=== PATIENT | male | born 1955 | race African-American/Black ===

== ENCOUNTER 2018-11-10 15:11 | Emergency (ER) | payer MEDICARE, OTHER ==
[~2018-11-10] VITALS: Ht 172.7 cm; Wt 73.0 kg
[~2018-11-10 15:11] MED LIST: ASACOL400 MG PO; DIFLUCAN200 MG PO; LISINOPRIL10 MG PO; METRONIDAZOLE500 MG PO; NORCO 10-325 T1 EACH PO; NORCO 10MG-325MG1 EA PO; PANTOPRAZOLE SO40 MG PO; PENTASA500 MG PO; PREDNISONE10 MG PO; PREDNISONE20 MG PO; TYLENOL WITH C1 EACH PO; ULTRAM 50MG50 MG PO
--- OUTSIDE RECORDS SUMMARY | 2018-11-10 15:14 | XMS REPORT | Continuity of Care Document ---
Author Author [facility] Address Unknown Phone Unavailable Problems Problem Status Onset Date Classification Date Reported Comments Source ABDOMINAL PAIN, LEFT LOWER QUADRANT Active 06/24/2014 Condition 06/24/2014 [facility] ABNORMAL STOOL CONTENTS Active 06/24/2014 Condition 06/24/2014 [facility] ABNORMAL WEIGHT LOSS Active 06/24/2014 Condition 06/24/2014 [facility] ABSCESS PERIRECTAL/PERIANAL Active 06/24/2014 Condition 06/24/2014 [facility] CHANGE IN BOWEL HABITS Active 06/24/2014 Condition 06/24/2014 [facility] CROHN'S DISEASE, LARGE INTESTINE Active 06/24/2014 Condition 06/24/2014 [facility] ANAL FISTULA Active 06/24/2014 Condition 06/24/2014 [facility] RECTAL PAIN Active 06/24/2014 Condition 06/24/2014 [facility] Medications Medication Details Route Status Patient Instructions Ordering Provider Order Date Source PREDNISONE 10 MG TABS Active 06/24/2014 [facility] PENTASA 500 MG CR-CAPS Active 06/24/2014 [facility] DIFLUCAN 200 MG TABS Active 06/24/2014 [facility] PROTONIX 40 MG TBEC Active 06/24/2014 [facility] LISINOPRIL 20 MG TABS Active 06/24/2014 [facility] TYLENOL WITH CODEINE #3 300-30 MG TABS 1-2 tablets every 6 hours as needed for pain Active 06/24/2014 [facility] Allergies, Adverse Reactions, Alerts Substance Category Reaction Severity Reaction type Status Date Reported Comments Source TYLENOL Drug allergy TYLENOL 06/24/2014 [facility] IBUPROFEN Drug allergy IBUPROFEN 06/24/2014 [facility] Immunizations Immunization Date Given Site Status Last Updated Comments Source Results Order Name Results Value Reference Range Date Interpretation Comments Source Chemistry SODIUM 138 MEQ/L mmol/L 135 - 145 06/24/2014 [facility] Chemistry POTASSIUM 4.5 MEQ/L mmol/L 3.5 - 5.1 06/24/2014 [facility] Chemistry CREATININE 1.1 mg/dL 0.5 - 1.4 06/24/2014 [facility] Chemistry BUN 12 mg/dL 7 - 22 06/24/2014 [facility] Chemistry BUN/CREAT 11 6 - 25 06/24/2014 [facility] Chemistry ALBUMIN 2.6 g/dL 3.5 - 5.0 06/24/2014 [facility] Chemistry CALCIUM 9.5 mg/dL 8.5 - 10.5 06/24/2014 [facility] Chemistry SGPT (ALT) 27 U/L 0 - 65 06/24/2014 [facility] Chemistry SGOT (AST) 11 U/L 0 - 37 06/24/2014 [facility] Chemistry ALK PHOS 108 U/L 39 - 136 06/24/2014 [facility] Coagulation PT PATIENT 12.3 s 12.0 - 14.7 06/24/2014 [facility] Coagulation INR 0.92 0.85 - 1.17 06/24/2014 [facility] Coagulation PTT PATIENT 23.0 s 22.9 - 35.8 06/24/2014 [facility] Hematology HGB 10.6 g/dL 14.0 - 18.0 06/24/2014 [facility] Hematology HCT 33.9 % 42.0 - 54.0 06/24/2014 [facility] Hematology PLATELETS 556 K/CMM /mm3 133 - 450 06/24/2014 [facility] Serology CEA 1.3 ng/mL 0.0 - 3.0 06/24/2014 [facility] Urinalysis UA COLOR Ltyellow 06/24/2014 [facility] Vital Signs Vital Sign Value Date Comments Source Weight 174 06/24/2014 [facility] Temperature Oral (F) 98.7 F 06/24/2014 [facility] Heart Rate 116 06/24/2014 [facility] Systolic (mm Hg) 142 06/24/2014 [facility] Diastolic (mm Hg) 88 06/24/2014 [facility] Encounters Location Location Details Encounter Type Encounter Number Reason For Visit Attending Provider ADM Date DC Date Status Source [facility] Colorectal Surgery Lab Report [id number] Michael Ness MD 06/24/2014 06/24/2014 [facility] Procedures Procedure Code Date Perfomer Comments Source
--- OUTSIDE RECORDS SUMMARY | 2018-11-10 15:15 | XMS REPORT | Continuity of Care Document ---
Author Author [facility] Organization [facility] Address Unknown Phone Unavailable Care Team Providers Care Fence Post Cutter Name Role Phone MD Thi, Michael Unavailable Insurance Providers Payer name Policy type / Coverage type Policy ID Covered democrat ID Policy [place] - TM[place] - TRADITIONAL Encounters Encounter Performer Location Date Lab Report Michael Ness MD [facility] Colorectal Surgery Jun 24, 2014 Allergies, Adverse Reactions, Alerts Type Substance Reaction Status Drug allergy TYLENOL Stomach cramps Active Drug allergy IBUPROFEN Stomach cramps Active Problems Problem Effective Dates Problem Status ABDOMINAL PAIN, LEFT LOWER QUADRANT Jun 24, 2014 Active ABNORMAL STOOL CONTENTS Jun 24, 2014 Active ABNORMAL WEIGHT LOSS Jun 24, 2014 Active ABSCESS PERIRECTAL/PERIANAL Jun 24, 2014 Active CHANGE IN BOWEL HABITS Jun 24, 2014 Active CROHN'S DISEASE, LARGE INTESTINE Jun 24, 2014 Active ANAL FISTULA Jun 24, 2014 Active RECTAL PAIN Jun 24, 2014 Active Procedures Date Description Comments Jun 24, 2014 smoking status Never smoker Medications Medication Instructions Start Date Status PREDNISONE 10 MG TABS Jun 24, 2014 Active PENTASA 500 MG CR-CAPS Jun 24, 2014 Active DIFLUCAN 200 MG TABS Jun 24, 2014 Active PROTONIX 40 MG TBEC Jun 24, 2014 Active LISINOPRIL 20 MG TABS Jun 24, 2014 Active TYLENOL WITH CODEINE #3 300-30 MG TABS 1-2 tablets every 6 hours as needed for pain Jun 24, 2014 Active Vital Signs Date Description Test Result Jun 24, 2014 weight E&M - 3141-9 WEIGHT 174 lb Jun 24, 2014 temperature E&M TEMPERATURE 98.7 deg f Jun 24, 2014 pulse rate E&M - 8867-4 PULSE RATE 116 /min Jun 24, 2014 blood pressure, systolic - 8480-6 BP SYSTOLIC 142 mm Hg Jun 24, 2014 blood pressure, diastolic - 8462-4 BP DIASTOLIC 88 mm Hg Results Date Description Test Name Value Reference Interpretation Status Jun 24, 2014 hemoglobin, blood HGB 10.6 g/dL 14.0-18.0 Low Jun 24, 2014 hematocrit, blood HCT 33.9 % 42.0-54.0 Low Jun 24, 2014 platelet count PLATELETS 556 K/CMM /mm3 133-450 High Jun 24, 2014 urine color UA COLOR Ltyellow null Jun 24, 2014 sodium, serum SODIUM 138 MEQ/L mmol/L 135-145 Jun 24, 2014 potassium, serum POTASSIUM 4.5 MEQ/L mmol/L 3.5-5.1 Jun 24, 2014 creatinine, serum CREATININE 1.1 mg/dL 0.5-1.4 Jun 24, 2014 urea nitrogen, blood BUN 12 mg/dL 7-22 Jun 24, 2014 urea nitrogen/creatinine ratio, serum BUN/CREAT 11 null 6-25 Jun 24, 2014 albumin, serum ALBUMIN 2.6 g/dL 3.5-5.0 Low Jun 24, 2014 calcium, serum CALCIUM 9.5 mg/dL 8.5-10.5 Jun 24, 2014 alanine aminotransferase (SGPT), serum SGPT (ALT) 27 U/L 0-65 Jun 24, 2014 aspartate aminotransferase (SGOT), serum SGOT (AST) 11 U/L 0-37 Jun 24, 2014 alkaline phosphatase, serum ALK PHOS 108 U/L 39-136 Jun 24, 2014 prothrombin time (patient) PT PATIENT 12.3 s 12.0-14.7 Jun 24, 2014 international normalized ratio (INR) INR 0.92 null 0.85-1.17 Jun 24, 2014 PTT patient PTT PATIENT 23.0 s 22.9-35.8 Jun 24, 2014 carcinoembryonic antigen CEA 1.3 ng/mL 0.0-3.0
[2018-11-10 17:03] LABS: BASOPHILS % 0.3 % (0.0-1.0); EOSINOPHILS % 0.1 % (0.0-6.0); HEMATOCRIT 37.3 % (38.2-49.6); HEMOGLOBIN 12.1 g/dL (14.0-18.0); LYMPHOCYTES # (AUTO) 1.9 (1.0-3.2); LYMPHOCYTES % 20.5 % (18.0-39.1); MEAN CORPUSCULAR HEMOGLOBIN 28.5 pg (28-32); MEAN CORPUSCULAR HGB CONC 32.4 g/dL (31-35); MEAN CORPUSCULAR VOLUME 87.8 fL (81-99); MONOCYTES # (AUTO) 0.5 (0.2-0.8); MONOCYTES % 5.9 % (4.4-11.3); NEUTROPHILS # (AUTO) 6.7 (2.1-6.9); NEUTROPHILS % 72.9 % (38.7-80.0); PLATELET COUNT 226 x10e3/uL (140-360); RED BLOOD COUNT 4.25 x10e6/uL (4.3-5.7)
[2018-11-10 17:20] LABS: ALANINE AMINOTRANSFERASE 17 IU/L (0-55); ALBUMIN 3.4 g/dL (3.5-5.0); ALBUMIN/GLOBULIN RATIO 0.7 (0.8-2.0); ALKALINE PHOSPHATASE 80 IU/L (40-150); ANION GAP 12.5 mmol/L (8-16); BLOOD UREA NITROGEN 16 mg/dL (7-26); BUN/CREATININE RATIO 11 (6-25); CALCIUM 9.1 mg/dL (8.4-10.2); CARBON DIOXIDE 23 mmol/L (22-29); CHLORIDE 109 mmol/L (98-107); CREATININE, SERUM 1.43 mg/dL (0.72-1.25); EST GLOMERULAR FILTRATION RATE > 60 ML/MIN (60-); GLUCOSE 112 mg/dL (74-118); POTASSIUM 4.5 mmol/L (3.5-5.1); SODIUM 140 mmol/L (136-145)
[2018-11-10] MEDS ORDERED: SODIUM CHLORIDE 0.9% 1000ML 1,000 ML IV SCH (17:30)
[2018-11-10 18:43] VITALS: BP 123/75
== END 2018-11-10 18:55 | disposition home or self-care (01) ==
LOC: ER 15:11
DX: R94.4 Abnormal results of kidney function studies (principal); R19.7 Diarrhea, unspecified; Z87.19 Personal history of other diseases of the digestive system
CPT/HCPCS: 36415; 80053; 85025; 99283; J7030

== ENCOUNTER 2018-12-26 20:40 | Inpatient (IN) | payer OTHER ==
[~2018-12-26] VITALS: Ht 167.6 cm; Wt 113.5 kg
--- OUTSIDE RECORDS SUMMARY | 2018-12-26 20:45 | XMS REPORT | Continuity of Care Document ---
Author Author [employer] [facility] [employer] [facility] Address Unknown Phone Unavailable Care Team Providers Care Order Department Supervisor Name Role Phone [employer] [facility] Unavailable Unavailable Problems Problem Status Onset Date Classification Date Reported Comments Source ABDOMINAL PAIN, LEFT LOWER QUADRANT Active 06/24/2014 Condition 06/24/2014 [facility] ABNORMAL STOOL CONTENTS Active 06/24/2014 Condition 06/24/2014 [facility] ABNORMAL WEIGHT LOSS Active 06/24/2014 Condition 06/24/2014 [facility] ABSCESS PERIRECTAL/PERIANAL Active 06/24/2014 Condition 06/24/2014 [facility] CHANGE IN BOWEL HABITS Active 06/24/2014 Condition 06/24/2014 [facility] CROHN'S DISEASE, LARGE INTESTINE Active 06/24/2014 Condition 06/24/2014 [facility] ANAL FISTULA Active 06/24/2014 Condition 06/24/2014 [facility] RECTAL PAIN Active 06/24/2014 Condition 06/24/2014 [facility] Medications Medication Details Route Status Patient Instructions Ordering Provider Order Date Source PREDNISONE 10 MG TABS Active 06/24/2014 [facility] PENTASA 500 MG CR-CAPS Active 06/24/2014 [facility] DIFLUCAN 200 MG TABS Active 06/24/2014 [facility] PROTONIX 40 MG TBEC Active 06/24/2014 [facility] LISINOPRIL 20 MG TABS Active 06/24/2014 [facility] TYLENOL WITH CODEINE #3 300-30 MG TABS 1-2 tablets every 6 hours as needed for pain Active 06/24/2014 [facility] Allergies, Adverse Reactions, Alerts Substance Category Reaction Severity Reaction type Status Date Reported Comments Source TYLENOL Drug allergy TYLENOL 06/24/2014 [facility] IBUPROFEN Drug allergy IBUPROFEN 06/24/2014 [facility] Immunizations No Data Provided for This Section Results Order Name Results Value Reference Range Date Interpretation Comments Source Chemistry SODIUM 138 MEQ/L 135 - 145 06/24/2014 [facility] Chemistry POTASSIUM 4.5 MEQ/L 3.5 - 5.1 06/24/2014 [facility] Chemistry CREATININE 1.1 0.5 - 1.4 06/24/2014 [facility] Chemistry BUN 12 7 - 22 06/24/2014 [facility] Chemistry BUN/CREAT 11 6 - 25 06/24/2014 [facility] Chemistry ALBUMIN 2.6 3.5 - 5.0 06/24/2014 [facility] Chemistry CALCIUM 9.5 8.5 - 10.5 06/24/2014 [facility] Chemistry SGPT (ALT) 27 0 - 65 06/24/2014 [facility] Chemistry SGOT (AST) 11 0 - 37 06/24/2014 [facility] Chemistry ALK PHOS 108 39 - 136 06/24/2014 [facility] Coagulation PT PATIENT 12.3 12.0 - 14.7 06/24/2014 [facility] Coagulation INR 0.92 0.85 - 1.17 06/24/2014 [facility] Coagulation PTT PATIENT 23.0 22.9 - 35.8 06/24/2014 [facility] Hematology HGB 10.6 14.0 - 18.0 06/24/2014 [facility] Hematology HCT 33.9 42.0 - 54.0 06/24/2014 [facility] Hematology PLATELETS 556 K/CMM 133 - 450 06/24/2014 [facility] Serology CEA 1.3 0.0 - 3.0 06/24/2014 [facility] Urinalysis UA COLOR Ltyellow 06/24/2014 [facility] Pathology Reports No Data Provided for This Section Diagnostic Reports No Data Provided for This Section Consultation Notes No Data Provided for This Section Discharge Summaries No Data Provided for This Section History and Physicals No Data Provided for This Section Vital Signs Vital Sign Value Date Comments Source Weight 174 06/24/2014 [facility] Temperature Oral (F) 98.7 F 06/24/2014 [facility] Heart Rate 116 06/24/2014 [facility] Systolic (mm Hg) 142 06/24/2014 [facility] Diastolic (mm Hg) 88 06/24/2014 [facility] Encounters Location Location Details Encounter Type Encounter Number Reason For Visit Attending Provider ADM Date DC Date Status Source [facility] Colorectal Surgery Lab Report [id number] Michael Ness MD 06/24/2014 06/24/2014 [facility] Procedures No Data Provided for This Section Assessment and Plan No Data Provided for This Section Plan of Care No Data Provided for This Section Social History No Data Provided for This Section Family History No Data Provided for This Section Advance Directives No Data Provided for This Section Functional Status No Data Provided for This Section
[2018-12-26 22:26] LABS: BASOPHILS % 0.2 % (0.0-1.0); EOSINOPHILS # (AUTO) 0.1 (0.0-0.4); EOSINOPHILS % 0.5 % (0.0-6.0); HEMATOCRIT 35.9 % (38.2-49.6); HEMOGLOBIN 11.1 g/dL (14.0-18.0); LYMPHOCYTES # (AUTO) 1.9 (1.0-3.2); LYMPHOCYTES % 16.6 % (18.0-39.1); MEAN CORPUSCULAR HEMOGLOBIN 27.7 pg (28-32); MEAN CORPUSCULAR HGB CONC 30.9 g/dL (31-35); MEAN CORPUSCULAR VOLUME 89.5 fL (81-99); MONOCYTES # (AUTO) 1.3 (0.2-0.8); MONOCYTES % 10.9 % (4.4-11.3); NEUTROPHILS # (AUTO) 8.3 (2.1-6.9); NEUTROPHILS % 71.5 % (38.7-80.0); PLATELET COUNT 230 x10e3/uL (140-360); RED BLOOD COUNT 4.01 x10e6/uL (4.3-5.7); RED CELL DISTRIBUTION WIDTH 14.6 % (11.7-14.4)
[2018-12-26 22:45] LABS: ALBUMIN 3.7 g/dL (3.5-5.0); ALBUMIN/GLOBULIN RATIO 0.8 (0.8-2.0); ANION GAP 27.4 mmol/L (8-16); CALCIUM 9.2 mg/dL (8.4-10.2); CREATININE, SERUM 13.69 mg/dL (0.72-1.25); POTASSIUM 5.4 mmol/L (3.5-5.1)
[2018-12-26] MEDS ORDERED: SODIUM CHLORIDE 0.9% 1000ML 1,000 ML ONE (22:47)
--- NOTE | 2018-12-26 22:47 | Diagnostic Imaging Report ---
EXAMINATION: Head CT without contrast. HISTORY:Syncope. COMPARISON:None. TECHNIQUE: Multidetector axial images were obtained from the foramen magnum to the vertex without contrast. The images were reconstructed using brain and bone algorithms. Thin section brain images were reformatted into coronal and sagittal planes. Dose modulation, iterative reconstruction, and/or weight based adjustment of the mA/kV was utilized to reduce the radiation dose to as low as reasonably achievable. Intravenous contrast: None IMAGE QUALITY: Acceptable. FINDINGS: Skull/scalp: No lytic or blastic. lesions. No surgical changes. Parenchyma: No abnormal density. No acute hemorrhage, mass or acute major vascular territorial infarct. Arteries: No density suggestive of thrombosis. Dural sinuses: No abnormal density suggestive of thrombosis. Ventricles: No hydrocephalus or displacement. Extra-axial spaces: No abnormal density. Brain volume: Normal for age. Craniocervical junction: No mass, Chiari malformation, or basilar invagination. Sella: No mass. Paranasal/mastoid sinuses: Imaged portions unremarkable. IMPRESSION: No intracranial abnormality. Signed by: Dr. Paz Eastman M.D. on 12/26/2018 10:44 PM
[2018-12-26 23:23] LABS: AMPHETAMINES SCREEN,URINE NEGATIVE (NEGATIVE); BENZODIAZEPINES SCREEN,URINE NEGATIVE (NEGATIVE); PHENCYCLIDINE SCREEN,URINE NEGATIVE (NEGATIVE)
[2018-12-26] MEDS ORDERED: SODIUM CHLORIDE 0.9% 1000ML 1,000 ML IV ONE (23:30)
[2018-12-26] MEDS ORDERED: DEXTROSE 50% SYRINGE 50 ML IV STA (23:42)
[2018-12-26] MEDS ORDERED: CALCIUM CHLORIDE 10% 1.36 MEQ/ML 10ML SYR IV STA (23:42)
[2018-12-26] MEDS ORDERED: SODIUM BICARBONATE 8.4% INJ 50 ML SYR IV STA (23:42)
[2018-12-26] MEDS ORDERED: INSULIN REGULAR, HUMAN 100 UNIT/1 ML 3ML VIAL IV ONE (23:45)
[2018-12-26] MEDS ORDERED: SODIUM CHLORIDE 0.9% 1000ML 1,000 ML IV SCH (23:50)
[2018-12-26 23:52] LABS: CREATINE KINASE MB 5.8 ng/mL (0-5.0)
[2018-12-27] VITALS (7 sets, daily range): BP systolic 93–130; BP diastolic 57–88
--- NOTE | 2018-12-27 | NUR ---
PT PLACED IN HOSPITAL BED FOR COMFORT - PT IN NAD, RESP EVEN AND NONLAB; WILL CONTINUE TO MONITOR
--- OUTSIDE RECORDS SUMMARY | 2018-12-27 | XMS REPORT | Continuity of Care Document ---
Author Author [facility] [employer] Address Unknown Phone Unavailable Care Team Providers Care Button Breaker Operator Name Role Phone [employer] Unavailable Unavailable Problems Problem Status Onset Date [...] DISEASE, LARGE INTESTINE Active 06/24/2014 Condition 06/24/2014 [facility] ANAL FISTULA Active 06/24/2014 Condition 06/24/2014 [facility] RECTAL PAIN Active 06/24/2014 Condition 06/24/2014 [facility] Medications Medication Details Route Status Patient Instructions Ordering Provider Order Date Source PREDNISONE 10 MG TABS Active 06/24/2014 [facility] PENTASA 500 MG CR-CAPS Active 06/24/2014 [facility] DIFLUCAN 200 MG TABS Active 06/24/2014 [facility] PROTONIX 40 MG TBEC Active 06/24/2014 [facility] LISINOPRIL 20 MG TABS Active 06/24/2014 [facility] TYLENOL WITH CODEINE #3 300-30 MG TABS 1-2 tablets every 6 hours as needed for pain Active 06/24/2014 [facility] Allergies, Adverse Reactions, Alerts Substance Category Reaction Severity Reaction type Status Date Reported Comments Source TYLENOL Drug allergy TYLENOL 06/24/2014 [facility] IBUPROFEN Drug allergy IBUPROFEN 06/24/2014 [facility] Immunizations No Data Provided for This Section Results Order Name Results Value Reference Range Date Interpretation Comments Source Chemistry SODIUM 138 MEQ/L 135 - 145 06/24/2014 [facility] Chemistry POTASSIUM 4.5 MEQ/L 3.5 - 5.1 06/24/2014 [facility] Chemistry CREATININE 1.1 0.5 - 1.4 06/24/2014 [facility] Chemistry BUN 12 7 - 22 06/24/2014 [facility] Chemistry BUN/CREAT 11 6 - 25 06/24/2014 [facility] Chemistry ALBUMIN 2.6 3.5 - 5.0 06/24/2014 [facility] Chemistry CALCIUM 9.5 8.5 - 10.5 06/24/2014 [facility] Chemistry SGPT (ALT) 27 0 - 65 06/24/2014 [facility] Chemistry SGOT (AST) 11 0 - 37 06/24/2014 [facility] Chemistry ALK PHOS 108 39 - 136 06/24/2014 [facility] Coagulation PT PATIENT 12.3 12.0 - 14.7 06/24/2014 [facility] Coagulation INR 0.92 0.85 - 1.17 06/24/2014 [facility] Coagulation PTT PATIENT 23.0 22.9 - 35.8 06/24/2014 [facility] Hematology HGB 10.6 14.0 - 18.0 06/24/2014 [facility] Hematology HCT 33.9 42.0 - 54.0 06/24/2014 [facility] Hematology PLATELETS 556 K/CMM 133 - 450 06/24/2014 [facility] Serology CEA 1.3 0.0 - 3.0 06/24/2014 [facility] Urinalysis UA COLOR Ltyellow 06/24/2014 [facility] Pathology Reports No Data Provided for This Section Diagnostic Reports No Data Provided for This Section Consultation Notes No Data Provided for This Section Discharge Summaries No Data Provided for This Section History and Physicals No Data Provided for This Section Vital Signs Vital Sign Value Date Comments Source Weight 174 06/24/2014 [facility] Temperature Oral (F) 98.7 F 06/24/2014 [facility] Heart Rate 116 06/24/2014 [facility] Systolic (mm Hg) 142 06/24/2014 [facility] Diastolic (mm Hg) 88 06/24/2014 [facility] Encounters Location Location Details Encounter Type Encounter Number Reason For Visit Attending Provider ADM Date DC Date Status Source [facility] Colorectal Surgery Lab Report [id number] Michael Ness MD 06/24/2014 06/24/2014 [facility] Procedures No Data Provided for This [...]
--- OUTSIDE RECORDS SUMMARY | 2018-12-27 | XMS REPORT ---
Author Author [facility] Address Unknown Phone Unavailable Care Team Providers Care Coffee Break Attendant Name Role Phone Lauren LEON Unavailable Unavailable Problems This patient has no known problems. Allergies, Adverse Reactions, Alerts This patient has no known allergies or adverse reactions. Medications This patient has no known medications. Results Test Description Test Time Test Comments Text Results Atomic Results Result Comments CT BRAIN WO 2018-12-26 22:40:00 [facility] [address] [place] [id number] Patient Name: DEA RICE MR #: [id number] : 1955 Age/Sex: 63/M Req #: [id number] Adm Physician: Ordered by: ALMAS LEON MD Report #: [id number] Location: ER Room/Bed: Procedure: [id number] CT/CT BRAIN WO Exam Date: 12/26/18 Exam Time: 2216 REPORT STATUS: Signed EXAMINATION: Head CT without contrast. HISTORY:Syn cope. COMPARISON:None. TECHNIQUE: Multidetector axial images were obtained from the foramen magnum to the vertex without contrast. The images were reconstructed using brain and bone algorithms. Thin section brain images were reformatted into coronal and sagittal planes. Dose modulation, iterative reconstruction, and/or weight based adjustment of the mA/kV was utilized to reduce the radiation dose to as low as reasonably achievable. Intravenous contrast: None IMAGE QUALITY: Acceptable. FINDINGS: Skull/scalp: No lytic or blastic. lesions. No surgical changes. Parenchyma: No abnormal density. No acute hemorrhage, mass or acute major vascular territorial infarct. Arteries: No density suggestive of thrombosis. Dural sinuses: No abnormal density suggestive of thrombosis. Ventricles: No hydrocephalus or displacement. Extra- axial spaces: No abnormal density. Brain volume: Normal for age. Craniocervical junction: No mass, Chiari malformation, or basilar invagination. Sella: No mass. Paranasal/mastoid sinuses: Imaged portions unremarkable. IMPRESSION: No intracranial abnormality. Signed by: Dr. Paz Melton M.D. on 12/26/2018 10:44 PM Dictated By: PAZ MELTON MD 43 Transcribed By: CARISSA on 12/26/182243 COPY TO: ALMAS LEON MD
[2018-12-27] MEDS ORDERED: SODIUM CHLORIDE 0.9% 50ML 50 ML ONE (00:35)
--- NOTE | 2018-12-27 01:00 | NUR ---
PT SITTNG UP IN BED EATING GRILLED CHICKEN SANDWICH; NAD NOTED, RESP EVEN AND NONLAB; WILL CONTINUE TO MONITOR
[2018-12-27] MEDS ORDERED: SODIUM CHLORIDE 0.9% 1000ML 2,000 ML ONE (01:22)
[2018-12-27] MEDS ORDERED: SODIUM CHLORIDE 0.9% 1000ML 1,000 ML IV ONE ×3 (01:30→03:45)
[2018-12-27] MEDS ORDERED: DEXTROSE 50% SYRINGE 50 ML IV STA (01:39)
--- NOTE | 2018-12-27 01:47 | NUR ---
bg 66- 1 amp of d50 given, dr wilson at bedside
[2018-12-27] MEDS ORDERED: DEXTROSE 5%/0.45% SOD CHL 1,000 ML IV ONE (03:30)
[2018-12-27] MEDS ORDERED: LIDOCAINE JELLY 2% 10ML URO-JET ONE (04:58)
[2018-12-27] MEDS ORDERED: LIDOCAINE JELLY 2% 10ML URO-JET TOP ONE (05:00)
[2018-12-27 05:19] LABS: BASOPHILS % 0.1 % (0.0-1.0); EOSINOPHILS # (AUTO) 0.1 (0.0-0.4); EOSINOPHILS % 0.8 % (0.0-6.0); HEMOGLOBIN 10.1 g/dL (14.0-18.0); LYMPHOCYTES # (AUTO) 2.8 (1.0-3.2); MEAN CORPUSCULAR HEMOGLOBIN 28.5 pg (28-32); MEAN CORPUSCULAR HGB CONC 31.6 g/dL (31-35); MEAN CORPUSCULAR VOLUME 90.4 fL (81-99); MONOCYTES # (AUTO) 1.7 (0.2-0.8); MONOCYTES % 13.5 % (4.4-11.3); NEUTROPHILS % 63.2 % (38.7-80.0); PLATELET COUNT 223 x10e3/uL (140-360); RED BLOOD COUNT 3.54 x10e6/uL (4.3-5.7); RED CELL DISTRIBUTION WIDTH 14.6 % (11.7-14.4)
[2018-12-27 05:34] LABS: CLARITY,URINE HAZY (CLEAR); COLOR,URINE YELLOW (YELLOW); KETONES,URINE NEGATIVE (NEGATIVE); LEUKOCYTE ESTERASE ,URINE NEGATIVE (NEGATIVE); NITRITE,URINE NEGATIVE (NEGATIVE); PROTEIN,URINE DIPSTICK 1+ (NEGATIVE); URINE UROBILINOGEN 0.2 mg/dL (0.2 - 1)
[2018-12-27 05:35] LABS: BILIRUBIN,URINE SMALL (NEGATIVE)
[2018-12-27 05:37] LABS: INR 1.04; PROTHROMBIN TIME 14.1 seconds (11.9-14.5)
[2018-12-27 05:38] LABS: PARTIAL THROMBOPLASTIN TIME 26.9 seconds (23.8-35.5)
[2018-12-27 05:41] LABS: ALBUMIN/GLOBULIN RATIO 0.8 (0.8-2.0); ANION GAP 23.3 mmol/L (8-16); CALCIUM 8.2 mg/dL (8.4-10.2); CREATININE, SERUM 12.98 mg/dL (0.72-1.25); POTASSIUM 5.3 mmol/L (3.5-5.1)
[2018-12-27 05:43] LABS: BACTERIA,URINE MANY /HPF; RBC,URINE >50 /HPF (0-5); WBC,URINE (MAN) 21-50 /HPF (0-5)
[2018-12-27 05:44] LABS: AMORPHOUS SEDIMENT,URINE MANY (FEW); EPITHELIAL CELLS,URINE MODERATE /LPF
[2018-12-27 05:47] LABS: CREATINE KINASE MB 11.3 ng/mL (0-5.0)
--- NOTE | 2018-12-27 06:04 | NUR ---
BÁRBARA SANDHU NOTIFIED OF MORNING LAB VALUES
[2018-12-27] MEDS: SODIUM CHLORIDE 0.9% 1000ML 1,000 ML IV SCH ×2 (07:31→15:23)
[2018-12-27] MEDS: CEFTRIAXONE SOD 1 GM/NS 50 ML 50 ML IV SCH (07:31)
--- NOTE | 2018-12-27 07:40 | NUR ---
PATIENT SLEEPING AT THIS TIME; EASILY AWAKENS TO TOUCH. IV FLUIDS AND ABX HUNG PER MD ORDERS. WILL CONTINUE TO MONITOR
--- NOTE | 2018-12-27 09:30 | NUR ---
DR LOPEZ BEDSIDE AT THIS TIME; PATIENT AWAKENS BUT QUICKLY FALLS BACK TO SLEEP. DR LOPEZ EXPLAINED NEED FOR TEMPORARY DIALYSIS TO PATIENT. PATIENT REMAINS SLEEPY AT THIS TIME. PATIENT REQUESTING FOR RN TO CALL DAUGHTER.
--- NOTE | 2018-12-27 10:14 | NUR ---
SPOKE WITH PATIENTS DAUGHTER, THAIS RICE PER PATIENTS REQUEST. THAIS'S NUMBER IS [phone]. THAIS STATES SHE IS ON HER WAY TO SEE PATIENT. PATIENT NOTIFIED
[2018-12-27] MEDS ORDERED: SODIUM BICARBONATE 8.4% 150 ML in DEXTROSE 5% 1,000 ML IV SCH (10:15)
--- NOTE | 2018-12-27 10:30 | NUR ---
ULTRASOUND AT BEDSIDE FOR RENAL ULTRASOUND; UPDATED PATIENT ON DIALYSIS CATHETER PLACEMENT - ANTICIPATED TO HAPPEN IN THE NEXT HOUR IN THE INTERVENTIONAL RADIOLOGY SUITE. PATIENT VERBALIZED UNDERSTANDING AND ALL QUESTIONS ANSWERED. CONSENT PLACED ON CHART.
--- NOTE | 2018-12-27 11:10 | Diagnostic Imaging Report ---
Retroperitoneal ultrasound Indication: Acute renal failure Technique: Select images from retroperitoneal ultrasound provided for interpretation: Comparison: No prior studies for comparison. Findings: The right kidney measures 9.2 cm in greatest length. The echotexture is mildly increased. The cortex is lobulated. There is no evidence for mass. There is no collecting system dilatation or evidence of obstruction. No renal calculi evident. No adjacent free fluid or fluid collections. The left kidney measures 9.0 cm in greatest length. The echotexture is mildly increased. The cortex is lobulated. There is no evidence for mass. There is no collecting system dilatation or evidence of obstruction. No renal calculi evident. No adjacent free fluid or fluid collections. Bladder: Contains a Evans catheter. No free fluid in the pelvis. Survey images of the liver and spleen demonstrate no abnormalities. IMPRESSION: Mildly increased renal echotexture suggestive of medical renal disease. No hydronephrosis. Signed by: Dr. Sebastian Finch MD on 12/27/2018 11:06 AM
--- NOTE | 2018-12-27 11:13 | NUR ---
PATIENT AND FAMILY UPDATED ON PLAN OF CARE AT THIS TIME; PATENT TO HAVE TEMPORARY DIALYSIS PLACED IN INTERVENTIONAL RADIOLOGY; ALL QUESTIONS ANSWERED
--- NOTE | 2018-12-27 11:40 | NUR ---
PATIENT TO INTERVENTIONAL RADIOLOGY AT THIS TIME FOR TEMPORARY DIALYSIS CATHETER PLACEMENT; FAMILY WAITING IN ROOM
[2018-12-27] MEDS ORDERED: LIDOCAINE HCL 1% LOCAL INJ 20 ML VIAL ONE (12:13)
--- NOTE | 2018-12-27 12:38 | NUR ---
PATIENT REMAINS IN INTERVENTIONAL RADIOLOGY AT THIS TIME; FAMILY REMAINS IN ROOM
--- NOTE | 2018-12-27 13:01 | NUR ---
PATIENT BACK FROM INTERVENTIONAL RADIOLOGY AT THIS TIME; DR ESCALERA BEDSIDE
--- NOTE | 2018-12-27 13:24 | Diagnostic Imaging Report ---
Procedure: Non tunneled hemodialysis catheter placement. Medications: 1% lidocaine Fluoroscopy time: Djgioex-A-hdn fluoroscopy was utilized but images due to technical problems were unable to be retrieved. Dose area product: Unknown-as above Estimated blood loss: Minimal. Complications: No immediate. Procedure in detail: Informed consent for the procedure was obtained from the patient after discussion of risks and benefits. The right neck was prepped and draped in the standard sterile full barrier fashion after the patient was placed in the supine position on the C-arm fluoroscopic table. Ultrasound reveals the right internal jugular vein to be patent and fully compressible. Images were saved to the medical record. 1% lidocaine was administered into the skin and subcutaneous tissues of the right lower neck for local anesthesia. Then, under continuous sonographic guidance, a 21-gauge micropuncture needle was advanced into the right internal jugular vein. A 0.018 inch wire was advanced centrally under fluoroscopic guidance. The needle was then removed and access was secured with a micropuncture sheath. A 0.035 inch Amplatz wire was then advanced through the micropuncture sheath into the inferior vena cava under fluoroscopic guidance. The micropuncture sheath was then removed over the wire and the tract was serially dilated. Finally, a 13.5-Danish Bard Trialysis temporary hemodialysis catheter was advanced over the wire under fluoroscopic guidance. The catheter tip was positioned in the upper right atrium. Each catheter lumen showed good bidirectional flow and was packed with normal saline. The patient tolerated the procedure well without immediate complication. Impression: 1. Successful placement of a temporary hemodialysis catheter (13.5-Fr Bard Trialysis) by a right internal jugular approach. 2. The line is okay for immediate use. Signed by: Dr. Shiva Krishna DO on 12/27/2018 1:21 PM
--- NOTE | 2018-12-27 13:24 | Diagnostic Imaging Report ---
Procedure: Non tunneled hemodialysis catheter placement. Medications: 1% lidocaine Fluoroscopy time: [id number]-[id number]-yof fluoroscopy was utilized but images due to technical problems were unable to be retrieved. Dose area product: Unknown-as above Estimated blood loss: Minimal. Complications: No immediate. Procedure in detail: Informed consent for the procedure was obtained from the patient after discussion of risks and benefits. The right neck was prepped and draped in the standard sterile full barrier fashion after the patient was placed in the supine position on the C-arm fluoroscopic table. Ultrasound reveals the right internal jugular vein to be patent and fully compressible. Images were saved to the medical record. 1% lidocaine was administered into the skin and subcutaneous tissues of the right lower neck for local anesthesia. Then, under continuous sonographic guidance, a 21-gauge micropuncture needle was advanced into the right internal jugular vein. A 0.018 inch wire was advanced centrally under fluoroscopic guidance. The needle was then removed and access was secured with a micropuncture sheath. A 0.035 inch Amplatz wire was then advanced through the micropuncture sheath into the inferior vena cava under fluoroscopic guidance. The micropuncture sheath was then removed over the wire and the tract was serially dilated. Finally, a 13.5-Frisian Bard Trialysis temporary hemodialysis catheter was advanced over the wire under fluoroscopic guidance. The catheter tip was positioned in the upper right atrium. Each catheter lumen showed good bidirectional flow and was packed with normal saline. The patient tolerated the procedure well without immediate complication. Impression: 1. Successful placement of a temporary hemodialysis catheter (13.5-Fr Bard Trialysis) by a right internal jugular approach. 2. The line is okay for immediate use. Signed by: Dr. Shiva Krishna DO on 12/27/2018 1:21 PM
--- NOTE | 2018-12-27 13:24 | Diagnostic Imaging Report ---
Procedure: Non tunneled hemodialysis catheter placement. Medications: 1% lidocaine Fluoroscopy time: Ovaeigm-I-vsm fluoroscopy was utilized but images due to technical problems were unable to be retrieved. Dose area product: Unknown-as above Estimated blood loss: Minimal. Complications: No immediate. Procedure in detail: Informed consent for the procedure was obtained from the patient after discussion of risks and benefits. The right neck was prepped and draped in the standard sterile full barrier fashion after the patient was placed in the supine position on the C-arm fluoroscopic table. Ultrasound reveals the right internal jugular vein to be patent and fully compressible. Images were saved to the medical record. 1% lidocaine was administered into the skin and subcutaneous tissues of the right lower neck for local anesthesia. Then, under continuous sonographic guidance, a 21-gauge micropuncture needle was advanced into the right internal jugular vein. A 0.018 inch wire was advanced centrally under fluoroscopic guidance. The needle was then removed and access was secured with a micropuncture sheath. A 0.035 inch Amplatz wire was then advanced through the micropuncture sheath into the inferior vena cava under fluoroscopic guidance. The micropuncture sheath was then removed over the wire and the tract was serially dilated. Finally, a 13.5-Mohawk Bard Trialysis temporary hemodialysis catheter was advanced over the wire under fluoroscopic guidance. The catheter tip was positioned in the upper right atrium. Each catheter lumen showed good bidirectional flow and was packed with normal saline. The patient tolerated the procedure well without immediate complication. Impression: 1. Successful placement of a temporary hemodialysis catheter (13.5-Fr Bard Trialysis) by a right internal jugular approach. 2. The line is okay for immediate use. Signed by: Dr. Shiva Krishna DO on 12/27/2018 1:21 PM
--- NOTE | 2018-12-27 14:00 | Diagnostic Imaging Report ---
EXAMINATION: CHEST SINGLE (PORTABLE) COMPARISON: None INDICATION: Dialysis catheter placement ^hypertensive heart disease ^[id number] ^1335 ^Y DISCUSSION: Frontal view of the chest obtained at 1341 hours. HEART AND MEDIASTINUM: The aorta is tortuous. The heart is not enlarged. LINES: Dual lumen central venous catheter terminates at the cavoatrial junction LUNGS: The lungs are well inflated and clear. No pneumonia or pulmonary edema. PLEURA: No pleural effusion or pneumothorax. BONES AND SOFT TISSUES: No focal osseous lesion. The soft tissues are normal. IMPRESSION: Central venous catheter terminates at the cavoatrial junction. No pneumothorax. No acute cardiopulmonary process. Signed by: Dr. Sebastian Finch MD on 12/27/2018 1:57 PM
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
--- NOTE | 2018-12-27 14:38 | NUR ---
PATIENT TO CT AT THIS TIME
--- NOTE | 2018-12-27 14:52 | NUR ---
PATIENT BACK TO ROOM AT THIS TIME; DIALYTSIS BEDSIDE AT THIS TIME
[2018-12-27] MEDS ORDERED: SODIUM BICARBONATE 8.4% 150 ML in DEXTROSE 5% 1,000 ML IV ONE (15:15)
[2018-12-27] MEDS: ONDANSETRON HCL INJ 2MG/ML 2ML 2 MG/ML VIAL IV PRN (15:23)
[2018-12-27] MEDS ORDERED: SODIUM CHLORIDE 0.9% 250ML 500 ML IV PRN (15:45)
[2018-12-27] MEDS ORDERED: ALBUMIN 25% 12.5GM 0.25 GM/ML BTL IV PRN (15:45)
[2018-12-27] MEDS ORDERED: MANNITOL 25% 12.5GM/50 ML VIAL IV PRN ×2 (15:45)
[2018-12-27] MEDS ORDERED: SODIUM CHLORIDE 0.9% 1000ML 2,000 ML IV PRN (15:45)
[2018-12-27] MEDS ORDERED: HEPARIN SOD (PORCINE) 1000 UNIT/ML SDV IV PRN (15:45)
--- NOTE | 2018-12-27 15:58 | NUR ---
RECEIVED TELEPHONE CALL FROM DR ESCALERA TELEPHONE ORDERS RECEIVED: LACTIC ACID STAT LACTIC ACID TO BE REPEATED IN AM CONSULT FOR SURGERY - DR Martha GROVER REASON FOR CONSULT: "FREE AIR ON THE PORTAL VEIN"
--- NOTE | 2018-12-27 16:02 | Diagnostic Imaging Report ---
ADDENDUM #[address] Jeff Vera at 1555 hours. Confirmed. Signed by: Dr. Sebastian Finch MD on 12/27/2018 4:[address] Abdomen and Pelvis without contrast INDICATION: Hematuria, renal failure, history of Crohn's disease TECHNIQUE: Thin collimation axial images obtained from the diaphragm to the level of the pubic symphysis without nonionic intravenous contrast. Dose reduction techniques used: Automated exposure control, adjustment of the mAs and/or kVp according to patient size, standardized low-dose protocol, and/or iterative reconstruction technique. RADIATION DOSE: Total DLP: 869.44 mGy*cm Estimated effective dose: (DLP x 0.015 x size factor) mSv CTDIvol has been reviewed. It is below the limits set by the Radiation Protocol Committee (RPC). COMPARISON: None. ABDOMEN FINDINGS: Lung Bases: Mild bibasilar atelectasis. Subpleural fat deposition. The visualized portion of the mediastinum is normal. Liver: Air in several branches of the portal vein in the left lobe of the liver. There is in air in several branches of the portal system in the left upper quadrant (image 21) surrounding the stomach. No evidence of air in the main portal vein or SMV. Gallbladder: Present and appears normal. Pancreas: Mild fatty atrophy. Spleen: Normal size without mass. Adrenal Glands: No evidence for mass. Kidneys: Right: No renal calculus. No cortical mass or hydronephrosis Left: No renal calculus. No cortical mass or hydronephrosis Lymph Nodes: No enlarged abdominal or retroperitoneal lymph nodes.. Aorta: Normal in diameter. PELVIS FINDINGS: Bowel: Stomach: Dilated with air. No mural thickening. Small Bowel: Normal in caliber with normal wall thickness. There are a few tiny droplets of air adjacent to loops of the jejunum (images 46 and 50). Large Bowel: A few scattered diverticula in the left colon. No mural thickening or pericolic inflammation. Appendix: Normal. Bladder: Collapsed around a Evans catheter with nondependent air. Ureters: No ureteral dilatation or calculus. Peritoneum/retroperitoneum: No free fluid or fluid collection. Bones: Bilateral cancellous screws in the femoral necks/femoral heads. No evidence of hardware failure. Soft tissues: Lipoma in the right flank measures 8.8 x 8.5 cm. IMPRESSION: 1. Portal venous air and air adjacent to several small bowel loops. These are concerning for bowel ischemia. Please correlate with physical exam findings as well as history of connective tissue disease (lupus) as well as history of steroid use. Close interval follow-up is recommended. Mild burden of diverticulosis coli. No bowel obstruction or evidence of bowel inflammation by CT. 2. Nonspecific dilatation of the stomach without obstructing mass. 3. No evidence of renal calculus or obstructive uropathy. Findings discussed with Dr. Sawyer at 1555 hours. Confirmed. Signed by: Dr. Sebastian Finch MD on 12/27/2018 3:58 PM
--- NOTE | 2018-12-27 16:19 | Consultation ---
DATE OF CONSULTATION: 12/27/2018 Renal Consultation REASON FOR CONSULTATION: Acute kidney injury. HISTORY OF PRESENT ILLNESS: A 63-year-old male with a history of hypertension, who was brought by family members for nausea, vomiting, weakness, and dizziness. The patient states that he has been feeling bad for past 2-3 months. He has been having weakness, intermittent nausea, vomiting. The patient was seen in the emergency room November 10, 2018. At that time, he was noted to have a creatinine of 1.43. The patient was released home. He states since that time, he has continued to feel bad. He had a syncopal episode and was brought to the hospital by his daughter. When he arrived, his blood pressure was 83/55, pulse 92, respiratory rate of 14. The patient was started on IV fluids. He was found to have hyperkalemia, metabolic acidosis and acute kidney injury. Nephrology consultation was called. The patient was given fluid and a Evans catheter was placed. He remained oliguric with only about 35 mL of urine output since he was admitted last night. The patient is lethargic and a poor historian, falls asleep during my interview and remains a poor historian. REVIEW OF SYSTEMS: Nausea, vomiting. Positive anorexia. Positive weakness. Positive dizziness, had presyncopal episode at home. No diarrhea. All other systems negative. PAST MEDICAL HISTORY: Hypertension. PAST SURGICAL HISTORY: Hip surgery in 1971. SOCIAL HISTORY: No tobacco. No alcohol. No IV drugs. FAMILY HISTORY: Strong family history of end-stage renal disease in his two brothers and nephew. PHYSICAL EXAMINATION: VITAL SIGNS: Blood pressure 92/47, pulse 83, respiratory rate 16. GENERAL: No apparent distress. HEENT: Oropharynx clear. No scleral icterus. No peripheral edema. NECK: Supple. No elevation in jugular venous pressure. No lymphadenopathy. CHEST: Clear to auscultation anteriorly with decreased breath sounds at bases. CARDIOVASCULAR: Regular rate and rhythm. No murmurs or rubs appreciated. ABDOMEN: Soft. Positive bowel sounds. No tenderness. No rebound. EXTREMITIES: No edema. No clubbing. No cyanosis. : Evans catheter with minimal urine. LABORATORY DATA: Urinalysis; specific gravity 1.030, 1+ protein, greater than 50 rbc's, 21-50 wbc's. Sodium 136, potassium 5.3, chloride 104, CO2 14, anion gap 23, BUN 86, creatinine 12.9 headed down to 3.69, calcium 8.2, CK 681. Troponin 0.009. Albumin 3, INR 1.04, hemoglobin 10, white count 12, platelets 233. Imaging; CT of the brain shows no intracranial abnormality. ASSESSMENT AND PLAN: 1. Acute kidney injury. Suspect a component of volume depletion as well as ATN. We will also need to rule out glomerulonephritis. The patient appears uremic, remains hyperkalemic, acidotic and oligo uric. We will initiate dialysis today. I have ask vascular surgery to place a temporary dialysis catheter and will start as soon as catheters in place. 2. Volume depleted on exam. Continue with aggressive IV fluids. 3. Hyperkalemia. We will correct with dialysis. 4. Metabolic acidosis. We will give 1 L of bicarbonate in case dialysis is delayed. 5. Altered mental status, suspect secondary to uremia. We will also need to rule out infection. 6. Hypertension. Hold blood pressure medications. Blood pressure on the low side. Continue with volume resuscitation. MD JADEN Sanderson/SALVATORE /[id number]
--- NOTE | 2018-12-27 16:48 | NUR ---
PATIENT RESTING AT THIS TIME; DIALYSIS ONGOING. WILL CONTINUE TO MONITOR
[2018-12-27] MEDS: METRONIDAZOLE 500MG/NS 100ML 100 ML IV SCH (18:38)
[2018-12-27 19:06] LABS: CREATINE KINASE MB 13.6 ng/mL (0-5.0)
[2018-12-27 22:35] LABS: TOTAL PROTEIN, URINE 199.2 mg/dL (1-14)
[2018-12-28] VITALS (18 sets, daily range): BP systolic 104–163; BP diastolic 59–87
[2018-12-28 01:25] LABS: CREATININE,URINE RANDOM 277.79 mg/dL (63-166)
--- NOTE | 2018-12-28 02:05 | Consultation ---
DATE OF CONSULTATION: REASON FOR CONSULTATION: Possible ischemic bowel. HISTORY OF PRESENT ILLNESS: The patient is a 63-year-old male, morbidly obese, admitted to the hospital with a syncopal episode and uremia as well as changes in mental status, who upon admission was found to be uremic and is currently undergoing dialysis. Upon admission, he had a CT scan of the brain that was negative and a CT scan of the abdomen without contrast and he was found to have some air in the portal branches as well as linear focus of air outside of the lumen of the bowel. The patient has a history of Crohn disease, and at this time, he is awake and alert, but is a poor historian and the history is taken from the previous notes. Has already been stated by Dr. Vera and Dr. Quinones. He has a history of Crohn disease and, for the last several months, he has been having abdominal pain. At the time of my examination, the patient is awake, alert with stable vital signs, undergoing dialysis. He absolutely denies any pain. His abdomen is soft and nontender. He says that he passed gas and had a small bowel movement and felt better. PHYSICAL EXAMINATION: GENERAL: The patient is morbidly obese. He is awake, alert. ABDOMEN: Protuberant, consistent with his morbid obesity, but is absolutely soft and nontender. RECTAL: Reveals some stool and no blood. ASSESSMENT: Some air in the portal system on the left smaller branches of the vein. At this point, there is no evidence of acute abdomen. He does have a history of Crohn disease. He is currently undergoing dialysis. I would recommend rehydration, continue dialysis, empiric antibiotics, and careful followup. I will request a consultation with GI, Dr. Elliott Acosta, to help us in the management of this difficult patient. MD IZABELA Koo/SALVATORE /[id number]
[2018-12-28] MEDS: METRONIDAZOLE 500MG/NS 100ML 100 ML IV SCH ×3 (02:14→18:05)
[2018-12-28 05:25] LABS: BASOPHILS % 0.1 % (0.0-1.0); EOSINOPHILS # (AUTO) 0.1 (0.0-0.4); EOSINOPHILS % 0.9 % (0.0-6.0); HEMATOCRIT 29.3 % (38.2-49.6); HEMOGLOBIN 9.3 g/dL (14.0-18.0); LYMPHOCYTES # (AUTO) 1.7 (1.0-3.2); LYMPHOCYTES % 21.3 % (18.0-39.1); MEAN CORPUSCULAR HEMOGLOBIN 28.4 pg (28-32); MEAN CORPUSCULAR HGB CONC 31.7 g/dL (31-35); MEAN CORPUSCULAR VOLUME 89.3 fL (81-99); MONOCYTES # (AUTO) 1.5 (0.2-0.8); MONOCYTES % 18.9 % (4.4-11.3); NEUTROPHILS # (AUTO) 4.6 (2.1-6.9); NEUTROPHILS % 58.4 % (38.7-80.0); PLATELET COUNT 183 x10e3/uL (140-360); RED BLOOD COUNT 3.28 x10e6/uL (4.3-5.7); RED CELL DISTRIBUTION WIDTH 14.7 % (11.7-14.4)
[2018-12-28] MEDS: SODIUM CHLORIDE 0.9% 1000ML 1,000 ML IV SCH ×2 (05:36→07:15)
[2018-12-28] MEDS: CEFTRIAXONE SOD 1 GM/NS 50 ML 50 ML IV SCH (05:36)
[2018-12-28 05:49] LABS: ALBUMIN 2.5 g/dL (3.5-5.0); ALBUMIN/GLOBULIN RATIO 0.7 (0.8-2.0); ANION GAP 16.6 mmol/L (8-16); CALCIUM 8.1 mg/dL (8.4-10.2); CREATININE, SERUM 5.12 mg/dL (0.72-1.25); PHOSPHORUS 3.4 MG/DL (2.3-4.7); POTASSIUM 4.6 mmol/L (3.5-5.1)
[2018-12-28] MEDS ORDERED: BISACODYL 10 MG SUPP PR NR ×2 (06:45→08:15)
[2018-12-28] MEDS: PANTOPRAZOLE SOD 40 MG TABEC PO SCH ×2 (09:55→09:57)
[2018-12-28] MEDS: ONDANSETRON HCL INJ 2MG/ML 2ML 2 MG/ML VIAL IV PRN (09:57)
[2018-12-28] MEDS: PREDNISONE 20 MG TAB PO SCH (09:57)
--- NOTE | 2018-12-28 10:15 | NUR ---
Received patient lying in bed from ICU accompanied by and 3 daughters. patient oriented to room and use of call light. patient on bed navarro and call light placed within reach, asked to call for assistance.
--- NOTE | 2018-12-28 11:25 | Progress Note ---
DATE: Internal Medicine Progress Note SUBJECTIVE: The patient is 63-year-old male, who came with acute renal failure, started on dialysis, hyperkalemia, rhabdomyolysis. The patient is doing better now. Potassium back to normal. BUN and creatinine significantly better. PHYSICAL EXAMINATION: VITAL SIGNS: Blood pressure 106/61, temperature 98.3, heart rate 100 per minute, respiratory rate is 16 per minute, oxygen saturation 99%. HEART: Showed regular rhythm. Normal S1, S2 sound. LUNGS: Clear bilaterally. ABDOMEN: Soft. EXTREMITIES: Show no evidence of cyanosis or hematoma. LABORATORY DATA: On the BMP; sodium 139, potassium 4.6, chloride 105, CO2 of 32, BUN 55, creatinine 5.12, glucose 88. On the CBC; white blood count 7.93, hemoglobin 9.3, hematocrit 29.3, platelet count 183,000. PT 14.1, INR 1.04, PTT is 26.9. AST 18, ALT 15, total bilirubin 0.3, alkaline phosphatase 58. FINAL IMPRESSION: 1. Acute on chronic renal failure stage 4. 2. Rhabdomyolysis. 3. Chronic disease. 4. Hypertension with chronic renal failure. 5. Anemia of chronic disease. 6. Possible urinary tract infection. PLAN OF TREATMENT: Continue ceftriaxone 1 g IV once a day, metronidazole q.8 hours. He is on normal saline at 125 mL an hour, which we are going to discontinue. Continue with dialysis, albumin as needed 12.5 g as needed, heparin 4000 units as needed for dialysis. Continue monitoring BUN, creatinine, and electrolytes. There was some concern also about mesenteric ischemia. Dr. Nigel Pike is on the case because of that, Dr. Elliott Acosta is on the case because of that. Dr. Nuno has been consulted from Nephrology point of view. MD WANDA Davis/SALVATORE /[id number]
[2018-12-28] MEDS ORDERED: BACLOFEN10 MG PO (15:32)
[2018-12-28] MEDS ORDERED: GABAPENTIN400 MG (15:32)
[2018-12-28] MEDS ORDERED: HUMIRA40 MG/0.1 (15:32)
[2018-12-28] MEDS ORDERED: ARTIFICIAL TEARS (OPTH) 15 ML BTL OP PRN (16:15)
--- NOTE | 2018-12-28 16:15 | NUR ---
per dialysis nurse, 2L removed today and patient scheduled for dialysis again tomorrow.
--- NOTE | 2018-12-28 17:55 | NUR ---
this nurse called in by SENIOR STAFF PSYCHOLOGIST due to patient sweating profusely. patient is status post hemodialysis and when asked states he was straining to have a bowel movement. patient asked to not strain as it is affecting his BP and placed in bed with BLE elevated. patient with delayed response and does not open eyes when spoken to. BP 60/30 with pulse 140bpm.
--- NOTE | 2018-12-28 18:00 | NUR ---
paged. BP now 64/42 with pulse 108bpm. continues with profuse sweating and denies any more straining with nodding no.
--- NOTE | 2018-12-28 18:10 | NUR ---
received new orders for 200ml bolus of NS over 30mins and transfer to ICU. used car sales supervisor notified.
[2018-12-28] MEDS ORDERED: SODIUM CHLORIDE 0.9% 250ML 250 ML IV ONE (18:15)
--- NOTE | 2018-12-28 18:15 | NUR ---
BP 78/50 with pulse 105.
--- NOTE | 2018-12-28 18:35 | NUR ---
BP 98/52 with pulse 102.
--- NOTE | 2018-12-28 19:25 | NUR ---
Patient received lying in bed. AAO x 3. Patient had no complaints of pain. Respirations even and non-labored. Patient instructed to call for assistance when needed. Call light within reach.
--- NOTE | 2018-12-28 20:15 | NUR ---
Patient had 2 bowel movements ----soft and watery.
--- NOTE | 2018-12-28 20:33 | NUR ---
Patient transferred via bed to Room 189 in ICU. Report already given by [facility] nurse.
[2018-12-28] MEDS: TRAMADOL HCL 50 MG TAB PO PRN (22:29)
[2018-12-29] VITALS (26 sets, daily range): BP systolic 102–151; BP diastolic 72–97
[2018-12-29] MEDS: METRONIDAZOLE 500MG/NS 100ML 100 ML IV SCH ×3 (01:52→18:41)
[2018-12-29 04:58] LABS: RETICULOCYTE % 1.4 % (0.8-2.2)
[2018-12-29 06:05] LABS: FOLATE 9.2 ng/mL (7.0-15.4)
[2018-12-29] MEDS: CEFTRIAXONE SOD 1 GM/NS 50 ML 50 ML IV SCH (06:25)
[2018-12-29 06:45] LABS: FERRITIN 208.18 ng/mL (21.81-274.66)
[2018-12-29 07:22] LABS: ANION GAP 20.4 mmol/L (8-16); CALCIUM 9.4 mg/dL (8.4-10.2); CREATININE, SERUM 1.85 mg/dL (0.72-1.25); POTASSIUM 4.4 mmol/L (3.5-5.1)
--- NOTE | 2018-12-29 08:06 | NUR ---
Pt transferred from [facility]2 to ICU for higher level of care. Pt placed on PT hold at this time; will need new orders to resume skilled PT. Thank you. Addendum: 12/29/18 at 0810 by KAMERON PIKE PTA Amended: Links added.
[2018-12-29] MEDS: PREDNISONE 20 MG TAB PO SCH (08:25)
[2018-12-29] MEDS: PANTOPRAZOLE SOD 40 MG TABEC PO SCH (08:25)
[2018-12-29] MEDS: TRAMADOL HCL 50 MG TAB PO PRN ×2 (08:26→19:43)
--- NOTE | 2018-12-29 10:53 | Progress Note ---
DATE: Internal Medicine Progress Note SUBJECTIVE: The patient is doing better today. He had an episode of hypoglycemia. He received a bolus of normal saline. Blood pressure is stable today. He is not on dialysis today. PHYSICAL EXAMINATION: HEART: Showed regular rhythm. Normal S1 and S2 sound. LUNGS: Clear bilaterally. ABDOMEN: Soft, but is slightly distended. VITAL SIGNS: Blood pressure 121/83, temperature is 99 degrees, heart rate 87 per minute, respiratory rate 13 per minute, and oxygen saturation 99%. LABORATORY DATA: On the BMP; sodium 140, potassium 4.4, chloride 103, CO2 of 21, BUN 27, creatinine 1.86, and glucose 98. On the CBC, white blood count is 7.83, hemoglobin 9.3, hematocrit 29.3, and platelet count a 150,000. PT 14.1, INR 1.04, PTT 26.9. AST 18, ALT 15, total bilirubin 0.3, and alkaline phosphatase 58. IMPRESSION: 1. Acute on chronic renal failure, stage 4. 2. Rhabdomyolysis. 3. Chronic disease exacerbation. 4. Hypertension with chronic renal failure. 5. Anemia of chronic disease. 6. Episode of hypotension. PLAN OF TREATMENT: Continue ceftriaxone once a day, metronidazole q.8 hours because of the concern of sepsis. Continue with tramadol 50 mg q.4 hours as needed, Zofran 4 mg IV q.4 hours as needed, Protonix 40 mg daily, albumin as needed on dialysis days IV, prednisone 30 mg daily, Artificial Tears as needed, heparin 4000 units as needed. Continue dialysis time. Dialysis is placed on hold because of the significant improvement on the BUN and creatinine. The patient is doing better. He has been seen by Dr. Elliott Acosta for Gastroenterology. in the past because of chronic disease. The patient is stable right now. Case has been discussed with the nurse and the patient at the bedside. Time spent 55 minutes. MD WANDA Davis/MODL /[id number]
[2018-12-29 11:12] LABS: WBC,FECAL (FECAL LACTOFERRIN) POSITIVE (NEGATIVE)
[2018-12-29 12:08] LABS: C DIFFICILE TOXIN A&B AMP PROB NEGATIVE (NEGATIVE)
[2018-12-30] VITALS (20 sets, daily range): BP systolic 113–142; BP diastolic 77–96
[2018-12-30] MEDS: TRAMADOL HCL 50 MG TAB PO PRN ×2 (01:24→19:57)
[2018-12-30] MEDS: METRONIDAZOLE 500MG/NS 100ML 100 ML IV SCH ×3 (01:55→18:00)
[2018-12-30] MEDS ORDERED: DICYCLOMINE HCL 20 MG TAB PO STA (02:21)
[2018-12-30] MEDS ORDERED: LACTOBACILLUS ACIDOPHILUS CAPSULE PO STA (02:28)
[2018-12-30] MEDS ORDERED: EMBEDA PO (03:38)
[2018-12-30 05:04] LABS: BASOPHILS % 0.1 % (0.0-1.0); EOSINOPHILS % 0.2 % (0.0-6.0); HEMATOCRIT 30.8 % (38.2-49.6); HEMOGLOBIN 9.8 g/dL (14.0-18.0); LYMPHOCYTES # (AUTO) 2.2 (1.0-3.2); LYMPHOCYTES % 22.2 % (18.0-39.1); MEAN CORPUSCULAR HEMOGLOBIN 27.9 pg (28-32); MEAN CORPUSCULAR HGB CONC 31.8 g/dL (31-35); MEAN CORPUSCULAR VOLUME 87.7 fL (81-99); MONOCYTES # (AUTO) 1.1 (0.2-0.8); MONOCYTES % 11.4 % (4.4-11.3); NEUTROPHILS # (AUTO) 6.4 (2.1-6.9); NEUTROPHILS % 65.7 % (38.7-80.0); PLATELET COUNT 197 x10e3/uL (140-360); RED BLOOD COUNT 3.51 x10e6/uL (4.3-5.7); RED CELL DISTRIBUTION WIDTH 14.3 % (11.7-14.4)
[2018-12-30 05:25] LABS: ANION GAP 14.9 mmol/L (8-16); BLOOD UREA NITROGEN 25 mg/dL (7-26); BUN/CREATININE RATIO 18 (6-25); CALCIUM 8.7 mg/dL (8.4-10.2); CARBON DIOXIDE 23 mmol/L (22-29); CHLORIDE 103 mmol/L (98-107); EST GLOMERULAR FILTRATION RATE > 60 ML/MIN (60-); GLUCOSE 100 mg/dL (74-118); POTASSIUM 3.9 mmol/L (3.5-5.1); SODIUM 137 mmol/L (136-145)
[2018-12-30] MEDS: CEFTRIAXONE SOD 1 GM/NS 50 ML 50 ML IV SCH (06:10)
[2018-12-30] MEDS: PREDNISONE 20 MG TAB PO SCH (08:22)
[2018-12-30] MEDS: DICYCLOMINE HCL 20 MG TAB PO SCH ×4 (08:22→19:56)
[2018-12-30] MEDS: LACTOBACILLUS ACIDOPHILUS CAPSULE PO SCH ×3 (08:22→19:56)
[2018-12-30] MEDS: PANTOPRAZOLE SOD 40 MG TABEC PO SCH (08:22)
[2018-12-30] MEDS: IRON SUCROSE 100 MG in SODIUM CHLORIDE 0.9% 100 ML 100 ML IV SCH (12:35)
[2018-12-30] MEDS: CHOLESTYRAMINE 4 GM PACKET PO SCH (15:30)
--- NOTE | 2018-12-30 15:40 | Progress Note ---
DATE: Internal Medicine Progress Note SUBJECTIVE: The patient is doing well. No significant complaint except complaining of headache and pain on the dialysis catheter placement. PHYSICAL EXAMINATION: VITAL SIGNS: Blood pressure 133/77, temperature 98 degrees, heart rate 88 per minute, respiratory rate 14 per minute, oxygen saturation 100%. HEART: Showed regular rhythm. Normal S1, S2 sound. LUNGS: Clear bilaterally. ABDOMEN: Soft. EXTREMITIES: Show no evidence of cyanosis or hematoma. LABORATORY DATA: On the BMP; sodium 137, potassium 3.9, chloride 103, CO2 of 23, BUN 25, creatinine 1.40, glucose 100. On CBC; white count 9.71, hemoglobin 9.8, hematocrit 30.8, platelet count of 187,000. PT 14.1, INR 1.04, PTT 26.9. AST 18, ALT 15, total bilirubin 0.3, alkaline phosphatase 58. FINAL IMPRESSION: 1. Acute renal insufficiency on chronic renal failure, which is slowly resolving. Continue monitoring BUN, creatinine and electrolytes, which has significantly improved especially BUN and creatinine. The patient is on dialysis right now. 2. Crohn disease exacerbation on Humira and steroid. His stools came back negative for C difficile. 3. Anemia of chronic disease. The patient has been started on Venofer for iron supplementation. 4. Urinary tract infection. The patient is started on IV Rocephin. 5. Abdominal pain, most likely secondary to Crohn disease exacerbation. 6. Headache. PLAN OF TREATMENT: Continue tramadol 50 mg q.6 hours as needed. MD WANDA Davis/SALVATORE /[id number]
[2018-12-31] VITALS (14 sets, daily range): BP systolic 119–158; BP diastolic 71–97
[2018-12-31] MEDS: METRONIDAZOLE 500MG/NS 100ML 100 ML IV SCH ×3 (01:08→17:15)
[2018-12-31] MEDS: TRAMADOL HCL 50 MG TAB PO PRN ×3 (02:00→14:45)
[2018-12-31] MEDS: CEFTRIAXONE SOD 1 GM/NS 50 ML 50 ML IV SCH (05:12)
[2018-12-31 05:25] LABS: ANION GAP 12.8 mmol/L (8-16); BLOOD UREA NITROGEN 22 mg/dL (7-26); BUN/CREATININE RATIO 17 (6-25); CALCIUM 8.6 mg/dL (8.4-10.2); CARBON DIOXIDE 25 mmol/L (22-29); CHLORIDE 101 mmol/L (98-107); CREATININE, SERUM 1.31 mg/dL (0.72-1.25); EST GLOMERULAR FILTRATION RATE > 60 ML/MIN (60-); GLUCOSE 84 mg/dL (74-118); POTASSIUM 3.8 mmol/L (3.5-5.1); SODIUM 135 mmol/L (136-145)
[2018-12-31] MEDS: IRON SUCROSE 100 MG in SODIUM CHLORIDE 0.9% 100 ML 100 ML IV SCH (06:30)
[2018-12-31] MEDS: PREDNISONE 20 MG TAB PO SCH (08:18)
[2018-12-31] MEDS: DICYCLOMINE HCL 20 MG TAB PO SCH ×4 (08:18→22:18)
[2018-12-31] MEDS: LACTOBACILLUS ACIDOPHILUS CAPSULE PO SCH ×3 (08:18→22:18)
[2018-12-31] MEDS: PANTOPRAZOLE SOD 40 MG TABEC PO SCH (08:19)
--- NOTE | 2018-12-31 09:31 | NUR ---
Removed patient's trialysis catheter to the right IJ. Tip intact. Held pressure for 5 minutes, checked for bleeding, no bleeding noted, applied pressure dressing to right neck. Initiated 22 ga PIV to the right hand. Patient tolerated all well. DEVONTE Bowie supervised removal of trialysis catheter.
--- NOTE | 2018-12-31 10:24 | NUR ---
Called report to DEVONTE Khoury on Mirificerg 2.
--- NOTE | 2018-12-31 11:45 | Progress Note ---
DATE: Internal Medicine Progress Note SUBJECTIVE: The patient is a 63-year-old male, who came here with acute renal insufficiency, started on dialysis. The BUN and creatinine are much, much better now, almost close to baseline. Dialysis has been discontinued. The hemodialysis catheter will be removed today. PHYSICAL EXAMINATION: VITAL SIGNS: Blood pressure 142/88, temperature 99 degrees, heart rate 85 per minute, respiratory rate 17 per minute, oxygen saturation 100%. HEART: Regular rhythm. Normal S1, S2 sound. LUNGS: Clear bilaterally. ABDOMEN: Soft. LABORATORY DATA: On the BMP; sodium 135, potassium 3.8, chloride 101, CO2 25, BUN 22, creatinine 1.31, glucose 84. On the CBC; white blood count 9.71, hemoglobin 9.8, hematocrit 30.8, platelet count of 187,000. PT 14.1, INR 1.04, PTT 26.9. AST 80, ALT 15, total bilirubin 0.3, alkaline phosphatase 58. FINAL IMPRESSION: 1. Episode of acute renal insufficiency, which is slowly resolving. 2. Crohn disease exacerbation. 3. Anemia of chronic disease. 4. Urinary tract infection. 5. Chronic pain syndrome. PLAN OF TREATMENT: Continue with ceftriaxone 2 g IV once a day, metronidazole q.8 hours. He is receiving iron sucrose IV. Continue Artificial Tears as needed. Questran 4 g daily for diarrhea, mannitol as needed during dialysis, tramadol 50 mg q.4 hours as needed, Zofran 4 mg p.o. q.4 hours as needed for nausea and vomiting, Protonix 40 mg daily, Bentyl 20 mg q.6 hours, albumin 12.5 g IV as needed, prednisone 30 mg daily, lactobacillus acidophilus one tablet three times a day. The patient going to be transferred out to ICU today as I said the liquor establishment manager is going to remove the dialysis catheter and dialysis has been discontinued because of significant improvement in the BUN and creatinine. Tentative discharge for tomorrow. MD WANDA Davis/MODL /[id number]
[2018-12-31] MEDS: CHOLESTYRAMINE 4 GM PACKET PO SCH (14:40)
[2018-12-31] MEDS ORDERED: SODIUM CHLORIDE 0.9% 250ML 250 ML ONE (17:38)
--- NOTE | 2018-12-31 19:22 | NUR ---
Patient received lying in bed. AAO x 3. Patient had no complaints of pain. No signs of respiratory distress. Bed locked and in lowest position. Bed rails up x 2. Patient instructed to call for assistance when needed. Call light within reach.
[2019-01-01] MEDS ORDERED: MESALAMINE 1,000 MG SUPP RC STA (00:09)
[2019-01-01] MEDS: METRONIDAZOLE 500MG/NS 100ML 100 ML IV SCH ×3 (02:37→17:52)
[2019-01-01 04:00] VITALS: BP 119/62
[2019-01-01] MEDS: IRON SUCROSE 100 MG in SODIUM CHLORIDE 0.9% 100 ML 100 ML IV SCH (05:00)
[2019-01-01 05:33] LABS: ANION GAP 10.7 mmol/L (8-16); BLOOD UREA NITROGEN 19 mg/dL (7-26); BUN/CREATININE RATIO 16 (6-25); CALCIUM 8.6 mg/dL (8.4-10.2); CARBON DIOXIDE 25 mmol/L (22-29); CHLORIDE 107 mmol/L (98-107); EST GLOMERULAR FILTRATION RATE > 60 ML/MIN (60-); GLUCOSE 81 mg/dL (74-118); POTASSIUM 3.7 mmol/L (3.5-5.1); SODIUM 139 mmol/L (136-145)
[2019-01-01] MEDS: CEFTRIAXONE SOD 1 GM/NS 50 ML 50 ML IV SCH (05:47)
--- NOTE | 2019-01-01 07:00 | NUR ---
Patient resting comfortably . Walking rounds done. Shift report given to oncoming nurse.
[2019-01-01] MEDS: PREDNISONE 20 MG TAB PO SCH (08:12)
[2019-01-01] MEDS: DICYCLOMINE HCL 20 MG TAB PO SCH ×3 (08:12→17:52)
[2019-01-01] MEDS: PANTOPRAZOLE SOD 40 MG TABEC PO SCH (08:12)
[2019-01-01] MEDS: LACTOBACILLUS ACIDOPHILUS CAPSULE PO SCH ×2 (08:12→17:52)
[2019-01-01 08:32] VITALS: BP 144/91
[2019-01-01 08:54] VITALS: BP 144/91
[2019-01-01 12:03] VITALS: BP 148/93
[2019-01-01 17:00] VITALS: BP 155/96
--- NOTE | 2019-01-01 17:18 | NUR ---
Received home health and rolling walker. Spoke to pt at bedside. He declines need for home health. States he has provider services and does not want CM to set up home health. Pt signed choice form for [facility] for rolling walker. Javed with [employer] will come shredder picker referral and deliver walker today.
[2019-01-01] MEDS: CHOLESTYRAMINE 4 GM PACKET PO SCH (17:52)
--- NOTE | 2019-01-01 18:45 | NUR ---
PIV removed with tip intact. escorted to front lobby door where sister awaited in private auto. d/c instructions, RX and all personal belongings with patient and his sister, patients standard walker taken by sister.
[2019-01-01] MEDS ORDERED: MESALAMINE 1,000 MG SUPP RC SCH (21:00)
--- NOTE | 2019-01-01 21:44 | Discharge Summary ---
HOSPITAL COURSE: A 63-year-old male with past medical history positive for hypertension, history of Crohn disease, came here to the hospital because of weakness. He was found to have acute on chronic renal failure, Crohn disease exacerbation, rhabdomyolysis. He was started on IV fluids. He was started on dialysis. BUN and creatinine essentially are back to normal. The patient was removed from dialysis because of that. He is doing a lot better. Blood pressure is much more stable right now. The patient was started on Humira and prednisone by Dr. Elliott Acosta, boat buffer plastic. He is feeling a lot better, little bit dizzy when he stands up due to the fact that he was in the ICU. We are recommending physical and occupational therapy with home health when he goes home. PHYSICAL EXAMINATION: HEART: Showed regular rhythm. Normal S1 and S2 sound. LUNGS: Clear bilaterally. ABDOMEN: Soft. EXTREMITIES: Show no evidence of cyanosis or hematoma. LABORATORY DATA: On the BMP; sodium 139, potassium 3.7, chloride 107, CO2 of 25, BUN 19, creatinine 1.20, and glucose 81. On CBC, white count 9.71, hemoglobin 9.8, hematocrit 30.8, and platelet count of 187,000. PT 14.1, INR 1.04, and PTT 26.9. AST 80, ALT 15, total bilirubin 0.3, and alkaline phosphatase 58. FINAL IMPRESSION: 1. Acute on chronic renal insufficiency, stage 3, which is almost resolved. 2. Crohn disease exacerbation. 3. Anemia of chronic disease. 4. Hypertension. PLAN OF TREATMENT: The patient will continue with the home medication, which include prednisone 30 mg daily. Continue Humira. Also continue Protonix 40 mg daily. Continue mesalamine 1000 mg at bedtime. We are going to put him on Norvasc 5 mg daily also for hypertension. The patient is told to increase fluid intake at home. Follow up with me in a week, Dr. Elliott Acosta, and also transcription specialist, Dr. Nuno. Diet, renal diet and low-salt diet. MD WANDA Davis/SALVATORE /[id number]
== END 2019-01-01 18:30 | disposition home or self-care (01) | DRG 682 ==
LOC: ER 20:40 → ERHOLD 23:57 → ICU 12-27 19:57 → MED/SURG2 12-28 10:13 → ICU 12-28 21:00 → MED/SURG2 12-31 11:30
PROVIDERS: ADMIT Internal Medicine; ATTEND Internal Medicine
PROC: 5A1D70Z Performance of Urinary Filtration, Intermittent, Less than 6 Hours Per Day (ICD-10-PCS; principal; 2018-12-27)
PROC: 02HV33Z Insertion of Infusion Device into Superior Vena Cava, Percutaneous Approach (ICD-10-PCS; principal; 2018-12-27)
PROC: 5A1D70Z Performance of Urinary Filtration, Intermittent, Less than 6 Hours Per Day (ICD-10-PCS; 2018-12-28)
DX: I12.9 Hypertensive chronic kidney disease with stage 1 through stage 4 chronic kidney disease, or unspecified chronic kidney disease (principal); N17.0 Acute kidney failure with tubular necrosis; M62.82 Rhabdomyolysis; N39.0 Urinary tract infection, site not specified; E87.2 Acidosis; Z68.41 Body mass index [BMI] 40.0-44.9, adult; K50.918 Crohn's disease, unspecified, with other complication; N18.4 Chronic kidney disease, stage 4 (severe); I11.9 Hypertensive heart disease without heart failure; E87.5 Hyperkalemia; Z99.2 Dependence on renal dialysis; D63.8 Anemia in other chronic diseases classified elsewhere
CPT/HCPCS: 36415; 36556; 70450; 71045; 74176; 76770; 76937; 77001; 80048; 80053; 80307; 81001; 82550; 82553; 82570; 82607; 82728; 82746; 82948; 83540; 83605; 83630; 83735; 83993; 84100; 84156; 84300; 84466; 84484; 85025; 85045; 85610; 85651; 85730; 86021; 86140; 86160; 87045; 87086; 87177; 87186; 87493; 90962; 93005; 93306; 97139; 99285; C1769; J0696; J1756; J1817; J2001; J2150; J2405; J7030; J7050; J7070; J7512; J7799

== ENCOUNTER 2019-01-28 10:52 | Inpatient (IN) | payer OTHER ==
[~2019-01-28] VITALS: Ht 172.7 cm; Wt 105.0 kg
[~2019-01-28 10:52] MED LIST changes: +BACLOFEN10 MG PO; +EMBEDA PO; +GABAPENTIN400 MG; +HUMIRA40 MG/0.1
--- OUTSIDE RECORDS SUMMARY | 2019-01-28 10:56 | XMS REPORT | Continuity of Care Document ---
Author Author [employer] [facility] [place] [employer] Information [employer] Address Unknown Phone Unavailable Care Team Providers Care Senior Major Gifts Officer Name Role Phone [employer] Unavailable Unavailable Problems Problem Status Onset Date [...] DISEASE, LARGE INTESTINE Active 06/24/2014 Condition 06/24/2014 [facility] ANAL FISTULA Active 06/24/2014 Condition 06/24/2014 [facility] RECTAL PAIN Active 06/24/2014 Condition 06/24/2014 [facility] Medications Medication Details Route Status Patient Instructions Ordering Provider Order Date Source PREDNISONE 10 MG TABS Active 06/24/2014 [facility] PENTASA 500 MG CR-CAPS Active 06/24/2014 [facility] DIFLUCAN 200 MG TABS Active 06/24/2014 [facility] PROTONIX 40 MG TBEC Active 06/24/2014 [facility] LISINOPRIL 20 MG TABS Active 06/24/2014 [facility] TYLENOL WITH CODEINE #3 300-30 MG TABS 1-2 tablets every 6 hours as needed for pain Active 06/24/2014 [facility] Allergies, Adverse Reactions, Alerts Substance Category Reaction Severity Reaction type Status Date Reported Comments Source TYLENOL Drug allergy TYLENOL 06/24/2014 [facility] IBUPROFEN Drug allergy IBUPROFEN 06/24/2014 [facility] Immunizations No Data Provided for This Section Results Order Name Results Value Reference Range Date Interpretation Comments Source Chemistry SODIUM 138 MEQ/L 135 - 145 06/24/2014 [facility] Chemistry POTASSIUM 4.5 MEQ/L 3.5 - 5.1 06/24/2014 [facility] Chemistry CREATININE 1.1 0.5 - 1.4 06/24/2014 [facility] Chemistry BUN 12 7 - 22 06/24/2014 [facility] Chemistry BUN/CREAT 11 6 - 25 06/24/2014 [facility] Chemistry ALBUMIN 2.6 3.5 - 5.0 06/24/2014 [facility] Chemistry CALCIUM 9.5 8.5 - 10.5 06/24/2014 [facility] Chemistry SGPT (ALT) 27 0 - 65 06/24/2014 [facility] Chemistry SGOT (AST) 11 0 - 37 06/24/2014 [facility] Chemistry ALK PHOS 108 39 - 136 06/24/2014 [facility] Coagulation PT PATIENT 12.3 12.0 - 14.7 06/24/2014 [facility] Coagulation INR 0.92 0.85 - 1.17 06/24/2014 [facility] Coagulation PTT PATIENT 23.0 22.9 - 35.8 06/24/2014 [facility] Hematology HGB 10.6 14.0 - 18.0 06/24/2014 [facility] Hematology HCT 33.9 42.0 - 54.0 06/24/2014 [facility] Hematology PLATELETS 556 K/CMM 133 - 450 06/24/2014 [facility] Serology CEA 1.3 0.0 - 3.0 06/24/2014 [facility] Urinalysis UA COLOR Ltyellow 06/24/2014 [facility] Pathology Reports No Data Provided for This Section Diagnostic Reports No Data Provided for This Section Consultation Notes No Data Provided for This Section Discharge Summaries No Data Provided for This Section History and Physicals No Data Provided for This Section Vital Signs Vital Sign Value Date Comments Source Weight 174 06/24/2014 [facility] Temperature Oral (F) 98.7 F 06/24/2014 [facility] Heart Rate 116 06/24/2014 [facility] Systolic (mm Hg) 142 06/24/2014 [facility] Diastolic (mm Hg) 88 06/24/2014 [facility] Encounters Location Location Details Encounter Type Encounter Number Reason For Visit Attending Provider ADM Date DC Date Status Source [facility] Colorectal Surgery Lab Report [id number] Michael Ness MD 06/24/2014 06/24/2014 [facility] Procedures No Data Provided for This [...]
[2019-01-28] MEDS ORDERED: SODIUM CHLORIDE 0.9% 1000ML 1,000 ML IV STA (11:28)
[2019-01-28] MEDS ORDERED: ONDANSETRON HCL INJ 2MG/ML 2ML 2 MG/ML VIAL IV NR (11:30)
[2019-01-28] MEDS ORDERED: PANTOPRAZOLE 40 MG 10ML VIAL IV NR (11:30)
[2019-01-28 12:07] LABS: BASOPHILS % 0.2 % (0.0-1.0); EOSINOPHILS # (AUTO) 0.1 (0.0-0.4); EOSINOPHILS % 0.5 % (0.0-6.0); HEMATOCRIT 35.9 % (38.2-49.6); HEMOGLOBIN 11.6 g/dL (14.0-18.0); LYMPHOCYTES # (AUTO) 2.2 (1.0-3.2); LYMPHOCYTES % 20.1 % (18.0-39.1); MEAN CORPUSCULAR HEMOGLOBIN 28.2 pg (28-32); MEAN CORPUSCULAR HGB CONC 32.3 g/dL (31-35); MEAN CORPUSCULAR VOLUME 87.3 fL (81-99); MONOCYTES % 9.4 % (4.4-11.3); NEUTROPHILS # (AUTO) 7.6 (2.1-6.9); NEUTROPHILS % 69.3 % (38.7-80.0); PLATELET COUNT 221 x10e3/uL (140-360); RED BLOOD COUNT 4.11 x10e6/uL (4.3-5.7); RED CELL DISTRIBUTION WIDTH 14.8 % (11.7-14.4)
[2019-01-28 12:21] LABS: INR 0.98; PROTHROMBIN TIME 13.5 seconds (11.9-14.5)
[2019-01-28 12:29] LABS: ALBUMIN 3.8 g/dL (3.5-5.0); ALBUMIN/GLOBULIN RATIO 0.9 (0.8-2.0); ANION GAP 23.5 mmol/L (8-16); CALCIUM 9.9 mg/dL (8.4-10.2); CREATININE, SERUM 10.47 mg/dL (0.72-1.25); MAGNESIUM 2.2 MG/DL (1.3-2.1); POTASSIUM 4.5 mmol/L (3.5-5.1)
[2019-01-28 12:35] LABS: CREATINE KINASE MB 1.2 ng/mL (0-5.0)
[2019-01-28] MEDS ORDERED: SODIUM CHLORIDE 0.9% 1000ML 1,000 ML IV NR (12:59)
[2019-01-28 13:16] LABS: B-TYPE NATRIURETIC PEPTIDE2 < 10.0 pg/mL (0-100)
--- NOTE | 2019-01-28 13:28 | Diagnostic Imaging Report ---
EXAMINATION: CHEST SINGLE (PORTABLE) INDICATION: Shortness of breath COMPARISON: Chest radiograph of 12/27/2018 FINDINGS: LINES/TUBES:EKG leads overlie the chest. LUNGS:The lung volumes are low. There is perihilar fullness and indistinctness of the pulmonary vasculature. No focal consolidation. PLEURA:No pleural effusion or pneumothorax. MEDIASTINUM:Cardiomediastinal silhouette is at the upper limits of normal for size. BONES/SOFT TISSUES:No acute osseous injury. ABDOMEN:No free air under the diaphragm. IMPRESSION: Mild pulmonary edema. No focal pneumonia. Signed by: Galen Mortensen MD on 01/28/2019 1:25 PM
[2019-01-28] MEDS ORDERED: VANCOMYCIN 1GM/NS 250 ML 250 ML IV ONE (13:45)
[2019-01-28] MEDS ORDERED: SODIUM CHLORIDE 0.9% 1000ML 1,000 ML IV SCH (14:00)
[2019-01-28] MEDS ORDERED: ONDANSETRON HCL INJ 2MG/ML 2ML 2 MG/ML VIAL IV PRN (14:00)
--- OUTSIDE RECORDS SUMMARY | 2019-01-28 14:12 | XMS REPORT | Continuity of Care Document ---
Author Author [facility] [employer] Address Unknown Phone Unavailable Care Team Providers Care Timber Harvester Operator Name Role Phone [employer] Unavailable Unavailable Problems Problem Status Onset Date [...] DISEASE, LARGE INTESTINE Active 06/24/2014 Condition 06/24/2014 [facility] ANAL FISTULA Active 06/24/2014 Condition 06/24/2014 [facility] RECTAL PAIN Active 06/24/2014 Condition 06/24/2014 [facility] Medications Medication Details Route Status Patient Instructions Ordering Provider Order Date Source PREDNISONE 10 MG TABS Active 06/24/2014 [facility] PENTASA 500 MG CR-CAPS Active 06/24/2014 [facility] DIFLUCAN 200 MG TABS Active 06/24/2014 [facility] PROTONIX 40 MG TBEC Active 06/24/2014 [facility] LISINOPRIL 20 MG TABS Active 06/24/2014 [facility] TYLENOL WITH CODEINE #3 300-30 MG TABS 1-2 tablets every 6 hours as needed for pain Active 06/24/2014 [facility] Allergies, Adverse Reactions, Alerts Substance Category Reaction Severity Reaction type Status Date Reported Comments Source TYLENOL Drug allergy TYLENOL 06/24/2014 [facility] IBUPROFEN Drug allergy IBUPROFEN 06/24/2014 [facility] Immunizations No Data Provided for This Section Results Order Name Results Value Reference Range Date Interpretation Comments Source Chemistry SODIUM 138 MEQ/L 135 - 145 06/24/2014 [facility] Chemistry POTASSIUM 4.5 MEQ/L 3.5 - 5.1 06/24/2014 [facility] Chemistry CREATININE 1.1 0.5 - 1.4 06/24/2014 [facility] Chemistry BUN 12 7 - 22 06/24/2014 [facility] Chemistry BUN/CREAT 11 6 - 25 06/24/2014 [facility] Chemistry ALBUMIN 2.6 3.5 - 5.0 06/24/2014 [facility] Chemistry CALCIUM 9.5 8.5 - 10.5 06/24/2014 [facility] Chemistry SGPT (ALT) 27 0 - 65 06/24/2014 [facility] Chemistry SGOT (AST) 11 0 - 37 06/24/2014 [facility] Chemistry ALK PHOS 108 39 - 136 06/24/2014 [facility] Coagulation PT PATIENT 12.3 12.0 - 14.7 06/24/2014 [facility] Coagulation INR 0.92 0.85 - 1.17 06/24/2014 [facility] Coagulation PTT PATIENT 23.0 22.9 - 35.8 06/24/2014 [facility] Hematology HGB 10.6 14.0 - 18.0 06/24/2014 [facility] Hematology HCT 33.9 42.0 - 54.0 06/24/2014 [facility] Hematology PLATELETS 556 K/CMM 133 - 450 06/24/2014 [facility] Serology CEA 1.3 0.0 - 3.0 06/24/2014 [facility] Urinalysis UA COLOR Ltyellow 06/24/2014 [facility] Pathology Reports No Data Provided for This Section Diagnostic Reports No Data Provided for This Section Consultation Notes No Data Provided for This Section Discharge Summaries No Data Provided for This Section History and Physicals No Data Provided for This Section Vital Signs Vital Sign Value Date Comments Source Weight 174 06/24/2014 [facility] Temperature Oral (F) 98.7 F 06/24/2014 [facility] Heart Rate 116 06/24/2014 [facility] Systolic (mm Hg) 142 06/24/2014 [facility] Diastolic (mm Hg) 88 06/24/2014 [facility] Encounters Location Location Details Encounter Type Encounter Number Reason For Visit Attending Provider ADM Date DC Date Status Source [facility] Colorectal Surgery Lab Report [id number] Michael Ness MD 06/24/2014 06/24/2014 [facility] Procedures No Data Provided for This [...]
--- NOTE | 2019-01-28 14:25 | Diagnostic Imaging Report ---
EXAM: CT Abdomen and Pelvis WITHOUT intravenous contrast INDICATION: Abdominal pain COMPARISON: CT abdomen pelvis of 12/27/2018 TECHNIQUE: Abdomen and pelvis were scanned utilizing a multidetector helical scanner from the lung base to the pubic symphysis without administration of IV contrast. Coronal and sagittal reformations were obtained. IV CONTRAST: None ORAL CONTRAST: None COMPLICATIONS: None RADIATION DOSE: Total DLP: 736.5 mGy*cm Dose modulation, iterative reconstruction, and/or weight based adjustment of the mA/kV was utilized to reduce the radiation dose to as low as reasonably achievable. FINDINGS: LOWER THORAX: Mild bibasilar dependent subsegmental atelectasis. No focal consolidation. Scattered coronary artery atherosclerotic calcifications. HEPATOBILIARY: No focal hepatic lesions. No biliary ductal dilatation. The gallbladder appears unremarkable. SPLEEN: No splenomegaly. PANCREAS: No focal masses or ductal dilatation. ADRENALS: No adrenal nodules. KIDNEYS/URETERS: No hydronephrosis, stones, or solid mass lesions. PELVIC ORGANS/BLADDER: Prostatomegaly to 5.4 cm. Phleboliths in the pelvis. PERITONEUM / RETROPERITONEUM: No free air or fluid. LYMPH NODES: No lymphadenopathy. VESSELS: Minimal scattered atherosclerotic calcifications of the nonaneurysmal abdominal aorta and major branches. GI TRACT: Mild sigmoid colonic diverticulosis. No CT evidence of diverticulitis. No abnormal bowel wall thickening. No bowel obstruction. Normal appendix. Distended stomach filled with fluid. BONES AND SOFT TISSUES: Status post hardware fixation of both proximal femora. No acute osseous injury. No suspicious lytic or blastic lesions. IMPRESSION: No acute findings in the abdomen or pelvis. Diverticulosis without CT evidence of diverticulitis. Distended fluid-filled stomach. No evidence of obstruction. Signed by: Galen Mortensen MD on 01/28/2019 2:22 PM
[2019-01-28] MEDS: CEFEPIME 1GM/NS 0.9% 50 ML 50 ML IV SCH (14:43)
[2019-01-28] MEDS: SODIUM CHLORIDE 0.9% 1000ML 1,000 ML IV SCH ×2 (15:48→19:08)
--- NOTE | 2019-01-28 15:54 | Diagnostic Imaging Report ---
PROCEDURE: Non-tunneled central venous catheter placement Procedural Personnel Attending physician(s): Galen Mortensen MD Fellow physician(s): None Resident physician(s): None Advanced practice provider(s): None Pre-procedure diagnosis: Acute kidney injury Post-procedure diagnosis: Same Indication: Performance of hemodialysis Additional clinical history: None Complications: No immediate complications. IMPRESSION: Insertion of right-sided non-tunneled triple lumen temporary trialysis catheter. Portable chest radiograph to follow. Plan: Post-procedural chest radiograph to confirm positioning prior to use. PROCEDURE SUMMARY: - Venous access with ultrasound guidance - Non-tunneled central venous catheter insertion. - Additional procedure(s): None PROCEDURE DETAILS: Pre-procedure Consent: Informed consent for the procedure including risks, benefits and alternatives was obtained and time-out was performed prior to the procedure. Preparation (MIPS): The site was prepared and draped using all elements of maximal sterile barrier technique including sterile gloves, sterile gown, cap, mask, large sterile sheet, sterile ultrasound probe cover, hand hygiene and cutaneous antisepsis with 2% chlorhexidine. Medical reason for site preparation exception (MIPS): Not applicable Anesthesia/sedation Level of anesthesia/sedation: No sedation Anesthesia/sedation administered by: Independent trained observer under attending supervision with continuous monitoring of the patient?s level of consciousness and physiologic status Access Local anesthesia was administered. The vessel was sonographically evaluated and determined to be patent. Real time ultrasound was used to visualize needle entry into the vessel and a permanent image was stored. Vein accessed: Internal jugular vein Access technique: 19 gauge access needle Catheter placement The access site was dilated and the catheter was placed into the vein over a wire under fluoroscopic guidance. The catheter tip location was fluoroscopically verified and a permanent image was stored.. A sterile dressing was applied. Catheter placed: Bard Trialysis Catheter size (Ecuadorean): 13 Catheter length (cm): 15 Catheter flush: Normal saline Catheter securement technique: Non-absorbable suture Contrast Contrast agent: None Radiation Dose None Additional Details Additional description of procedure: None Equipment details: None Specimens removed: None Estimated blood loss (mL): Less than 10 Standardized report: [email or web address] Attestation Signer name: Galen Mortensen MD I attest that I was present for the entire procedure. I reviewed the stored images and agree with the report as written. Signed by: Galen Mortensen MD on 01/28/2019 3:50 PM
[2019-01-28] MEDS ORDERED: LIDOCAINE JELLY 2% 10ML URO-JET ONE (16:03)
--- NOTE | 2019-01-28 16:43 | Diagnostic Imaging Report ---
EXAMINATION: CHEST XRAY POST PROCEDURE INDICATION: Line placement COMPARISON: Chest are graft of earlier the same day. FINDINGS: LINES/TUBES:Interval placement of right IJ nontunneled traverses catheter terminating in the superior vena cava. EKG leads overlie the chest. LUNGS:The lungs are moderately inflated. There is perihilar fullness and indistinctness of the pulmonary vasculature. No focal consolidation. PLEURA:No pleural effusion or pneumothorax. MEDIASTINUM:The cardiomediastinal silhouette appears unchanged in size and shape. BONES/SOFT TISSUES:No acute osseous injury. ABDOMEN:No free air under the diaphragm. IMPRESSION: Interval placement of right IJ nontunneled trauma catheter terminating in the superior vena cava. Mild pulmonary interstitial edema. Signed by: Galen Mortensen MD on 01/28/2019 4:40 PM
[2019-01-28] MEDS: PANTOPRAZOLE 40 MG 10ML VIAL IV SCH (17:00)
[2019-01-28 19:00] VITALS: BP 98/82
[2019-01-28 20:00] VITALS: BP_SYST 91; BP_SYST 98; BP_DIAS 63; BP_DIAS 82
--- NOTE | 2019-01-28 20:53 | Consultation ---
DATE OF CONSULTATION: 01/28/2019 Renal Consultation REASON FOR CONSULTATION: Acute kidney injury. HISTORY OF PRESENT ILLNESS: A 63-year-old male with history of Crohn disease and hypertension, who presented to [facility] with nausea, vomiting, diarrhea, and weakness. The patient was initially found to be hypotensive and acute kidney injury. He was given 1 L fluid bolus and Nephrology consultation was called. The patient was just recently admitted in December of 2018 with similar symptoms with acute kidney injury requiring dialysis x2. The patient's kidney function recovered and he was discharged with a creatinine of 1.2. The patient states that he has been working outside and having worsening nausea, vomiting, and weakness. His symptoms progressively got worse and he came to the ER. The patient denies taking any [id number] medications including NSAIDs. REVIEW OF SYSTEMS: Positive weakness. Positive cramping. Positive dizziness. Positive nausea. Positive vomiting. Positive diarrhea. No swelling. Some shortness of breath. All other systems negative. PAST MEDICAL HISTORY: 1. Hypertension. 2. Acute kidney injury in December of 2018 due to volume depletion and acute tubular necrosis, requiring dialysis x2. 3. Crohn disease. PAST SURGICAL HISTORY: Hip surgery as a teenager. ALLERGIES: IBUPROFEN. FAMILY HISTORY: Strong family history of kidney disease. SOCIAL HISTORY: No tobacco. No alcohol. No IV drugs. CURRENT MEDICATIONS: See list. PHYSICAL EXAMINATION: VITAL SIGNS: Blood pressure 74/52 to 90/69, pulse 88, respiratory rate 20, and temperature 97.8. GENERAL: No apparent distress. HEENT: Oropharynx clear. No scleral icterus. No peripheral edema. NECK: Supple. No elevation of jugular venous pressure. No lymphadenopathy. CHEST: Clear to auscultation anteriorly bilaterally. CARDIOVASCULAR: Regular rhythm. No murmurs, rubs, or gallops. ABDOMEN: Soft. Positive bowel sounds. No tenderness. No rebound. EXTREMITIES: No edema. No clubbing. No cyanosis. SKIN: Warm. DIAGNOSTIC DATA: CT scan shows no hydronephrosis. No acute findings in the abdomen or pelvis. Chest x-ray, mild pulmonary edema per report, not impressive on my personal review of the chest x-ray. Appears more underpenetrated. LABORATORY DATA: Sodium 137, potassium 4.5, chloride 98, CO2 20, BUN 65, creatinine 10.47, glucose 133, and magnesium 2.2. Troponin 0.002. BNP less than 10. Albumin 3.8. White count 10.96, hemoglobin 11.6, hematocrit 35.9, and platelets 221. ASSESSMENT AND PLAN: 1. Acute kidney injury secondary to volume depletion and possibly acute tubular necrosis. We will give IV fluids. Check urine studies and repeat labs in the morning. If the patient remains oliguric or his kidney function does not improve, we will initiate the patient on hemodialysis. We will check urine studies. Place Evans catheter. 2. Volume depleted on exam. IV fluids as above. 3. Hypotension, suspect secondary to volume depletion. Hold blood pressure medications. Continue with IV fluids. 4. Lytes acceptable. We will follow daily. Magnesium is slightly elevated. We will avoid any magnesium containing medications. 5. Metabolic acidosis secondary to kidney failure and diarrhea. Continue with IV fluids. MD JADEN Sanderson/SALVATORE /[id number]
[2019-01-28 21:00] VITALS: BP 98/82
[2019-01-28 22:30] LABS: CREATINE KINASE MB 1.3 ng/mL (0-5.0)
[2019-01-28 23:00] VITALS: BP 122/75
[2019-01-29] VITALS (45 sets, daily range): BP systolic 65–126; BP diastolic 29–109
[2019-01-29] MEDS: SODIUM CHLORIDE 0.9% 1000ML 1,000 ML IV SCH ×2 (00:08→10:35)
[2019-01-29] MEDS: CEFEPIME 1GM/NS 0.9% 50 ML 50 ML IV SCH ×2 (02:50→13:26)
[2019-01-29 05:26] LABS: BASOPHILS % 0.2 % (0.0-1.0); EOSINOPHILS # (AUTO) 0.1 (0.0-0.4); EOSINOPHILS % 0.9 % (0.0-6.0); HEMATOCRIT 32.1 % (38.2-49.6); HEMOGLOBIN 10.1 g/dL (14.0-18.0); LYMPHOCYTES # (AUTO) 2.4 (1.0-3.2); LYMPHOCYTES % 24.7 % (18.0-39.1); MEAN CORPUSCULAR HEMOGLOBIN 28.3 pg (28-32); MEAN CORPUSCULAR HGB CONC 31.5 g/dL (31-35); MEAN CORPUSCULAR VOLUME 89.9 fL (81-99); MONOCYTES # (AUTO) 1.1 (0.2-0.8); MONOCYTES % 11.1 % (4.4-11.3); NEUTROPHILS # (AUTO) 6.2 (2.1-6.9); NEUTROPHILS % 62.9 % (38.7-80.0); PLATELET COUNT 202 x10e3/uL (140-360); RED BLOOD COUNT 3.57 x10e6/uL (4.3-5.7); RED CELL DISTRIBUTION WIDTH 15.3 % (11.7-14.4)
[2019-01-29 06:08] LABS: ALBUMIN 3.1 g/dL (3.5-5.0); ALBUMIN/GLOBULIN RATIO 0.8 (0.8-2.0); ANION GAP 20.9 mmol/L (8-16); CALCIUM 8.7 mg/dL (8.4-10.2); CHOL/HDL RATIO 3.3 (3.9-4.7); CREATININE, SERUM 10.89 mg/dL (0.72-1.25); MAGNESIUM 2.1 MG/DL (1.3-2.1); POTASSIUM 4.9 mmol/L (3.5-5.1)
[2019-01-29] MEDS ORDERED: SODIUM CHLORIDE 0.9% 250ML 500 ML IV PRN (08:30)
[2019-01-29] MEDS: PANTOPRAZOLE 40 MG 10ML VIAL IV SCH (08:30)
[2019-01-29] MEDS ORDERED: ALBUMIN 25% 12.5GM 0.25 GM/ML BTL IV PRN (08:30)
[2019-01-29] MEDS ORDERED: MANNITOL 25% 12.5GM/50 ML VIAL IV PRN (08:30)
[2019-01-29] MEDS ORDERED: SODIUM CHLORIDE 0.9% 1000ML 2,000 ML IV PRN (08:30)
[2019-01-29] MEDS ORDERED: HEPARIN SOD (PORCINE) 1000 UNIT/ML SDV IV PRN (08:30)
[2019-01-29 11:32] LABS: CREATININE,URINE RANDOM 290.38 mg/dL (63-166); SODIUM,URINE 62 mmol/L; TOTAL PROTEIN, URINE 171.8 mg/dL (1-14)
[2019-01-29 11:36] LABS: AMPHETAMINES SCREEN,URINE NEGATIVE (NEGATIVE); BENZODIAZEPINES SCREEN,URINE NEGATIVE (NEGATIVE); PHENCYCLIDINE SCREEN,URINE NEGATIVE (NEGATIVE)
[2019-01-29 11:53] LABS: CLARITY,URINE HAZY (CLEAR); COLOR,URINE YELLOW (YELLOW); KETONES,URINE TRACE (NEGATIVE); LEUKOCYTE ESTERASE ,URINE NEGATIVE (NEGATIVE); NITRITE,URINE NEGATIVE (NEGATIVE); PROTEIN,URINE DIPSTICK 2+ (NEGATIVE)
[2019-01-29 11:54] LABS: BILIRUBIN,URINE SMALL (NEGATIVE); URINE UROBILINOGEN 0.2 mg/dL (0.2 - 1)
[2019-01-29 11:56] LABS: AMORPHOUS SEDIMENT,URINE FEW (FEW); BACTERIA,URINE MANY /HPF; CALCIUM OXALATE CRYSTALS,UR FEW (FEW); EPITHELIAL CELLS,URINE MODERATE /LPF
[2019-01-29 15:28] LABS: CREATINE KINASE MB 2.8 ng/mL (0-5.0)
[2019-01-29] MEDS: BACLOFEN 10 MG TAB PO SCH (17:32)
[2019-01-29] MEDS: TRAMADOL HCL 50 MG TAB PO PRN (18:28)
--- NOTE | 2019-01-29 19:28 | History and Physical ---
HISTORY OF PRESENT ILLNESS: A 63-year-old male, past medical history positive for hypertension, chronic renal insufficiency, history of coronary artery disease, came here to the hospital complaining of shortness of breath. He was found to be in pulmonary edema, started on dialysis due to worsening renal insufficiency. The patient is feeling better today. REVIEW OF SYSTEMS: CARDIOVASCULAR: No chest pain or palpitation. RESPIRATORY: He has had shortness of breath, not anymore. No cough. GASTROINTESTINAL: No nausea or vomiting. He did have some diarrhea when he came. GENITOURINARY: No frequency. No dysuria. ALLERGIES: HE IS ALLERGIC TO IBUPROFEN AND TYLENOL. SOCIAL HISTORY: He does not smoke. He does not drink. PAST MEDICAL HISTORY: Chronic renal insufficiency, hypertension, coronary artery disease. PHYSICAL EXAMINATION: VITAL SIGNS: Blood pressure 95/63, temperature is 98 degrees, heart rate 77 per minute, respiratory rate 16 per minute, and oxygen saturation 100%. HEART: Showed regular rhythm. Normal S1 and S2 sound. LUNGS: Clear bilaterally. ABDOMEN: Soft. EXTREMITIES: Show no evidence of cyanosis or hematoma. LABORATORY DATA: Chest x-ray on admission showed evidence of congestive heart failure. We have done also an echocardiogram, which showed an ejection fraction of 40%. No evidence of any severe valvular abnormality. No evidence of any pericardial effusion. Also, he had an EKG which showed no specific ST or T changes, sinus rhythm. No evidence of any ST-segment elevation or depression. On the blood work, we have BMP with a sodium 133, potassium 4.9, chloride 101, CO2 16, BUN 75, creatinine 10.89, and glucose 96. White blood count 9.82, hemoglobin 10.1, hematocrit 32.1, and platelet count 202,000. PT 13.5, INR 0.98, and PTT 21.0. AST 9, ALT 9, total bilirubin 0.6, and alkaline phosphatase 62. IMPRESSION: 1. Acute systolic congestive heart failure. 2. Owiqu-sy-plsaexn renal failure, stage 4. 3. Hypertension with chronic renal insufficiency. 4. Hypotension. 5. Coronary artery disease. 6. Hyponatremia. 7. Anemia of chronic disease. PLAN OF TREATMENT: We are going to continue dialysis. Continue cefepime 1 g IV twice a day, Protonix 40 mg twice a day. Continue heparin 4000 units as needed. I am going to discontinue lisinopril due to the hypotension. Continue monitoring BUN, creatinine, electrolytes. The patient is feeling a lot better right now. The patient will be on observation over the weekend and then after that Nephrology will decide whether or not he needs permanent dialysis. He might be on a short-term dialysis. Diet of course is going to be renal diet. MD WANDA Davis/SALVATORE /[id number]
[2019-01-30] VITALS (22 sets, daily range): BP systolic 95–139; BP diastolic 55–87
[2019-01-30] MEDS: SODIUM CHLORIDE 0.9% 1000ML 1,000 ML IV SCH ×2 (00:01→19:12)
[2019-01-30] MEDS: CEFEPIME 1GM/NS 0.9% 50 ML 50 ML IV SCH ×2 (01:08→14:03)
[2019-01-30 05:25] LABS: BASOPHILS % 0.3 % (0.0-1.0); EOSINOPHILS # (AUTO) 0.1 (0.0-0.4); EOSINOPHILS % 1.6 % (0.0-6.0); HEMATOCRIT 30.8 % (38.2-49.6); HEMOGLOBIN 9.7 g/dL (14.0-18.0); LYMPHOCYTES # (AUTO) 2.8 (1.0-3.2); LYMPHOCYTES % 36.8 % (18.0-39.1); MEAN CORPUSCULAR HEMOGLOBIN 28.1 pg (28-32); MEAN CORPUSCULAR HGB CONC 31.5 g/dL (31-35); MEAN CORPUSCULAR VOLUME 89.3 fL (81-99); MONOCYTES # (AUTO) 1.1 (0.2-0.8); MONOCYTES % 14.8 % (4.4-11.3); NEUTROPHILS # (AUTO) 3.5 (2.1-6.9); NEUTROPHILS % 46.2 % (38.7-80.0); PLATELET COUNT 171 x10e3/uL (140-360); RED BLOOD COUNT 3.45 x10e6/uL (4.3-5.7); RED CELL DISTRIBUTION WIDTH 14.9 % (11.7-14.4)
[2019-01-30 05:42] LABS: ANION GAP 13.5 mmol/L (8-16); CALCIUM 8.6 mg/dL (8.4-10.2); CREATININE, SERUM 3.46 mg/dL (0.72-1.25); POTASSIUM 4.5 mmol/L (3.5-5.1)
[2019-01-30] MEDS: GABAPENTIN 400 MG CAP PO SCH (08:00)
[2019-01-30] MEDS: PANTOPRAZOLE SOD 40 MG TABEC PO SCH (08:00)
[2019-01-30] MEDS: PREDNISONE 10 MG TAB PO SCH (08:00)
[2019-01-30] MEDS ORDERED: LISINOPRIL 20 MG TAB PO SCH (09:00)
[2019-01-30] MEDS ORDERED: LISINOPRIL 10 MG TAB PO SCH (09:00)
--- NOTE | 2019-01-30 14:17 | NUR ---
Patient had a bowel movement, stool sample sent. Patient ambulated in hallway with walker with no s/s of distress. Dr. Snyder rounded and gave orders for patient to transfer to medical-surgical floor. Will continue to monitor the patient.
[2019-01-30] MEDS: BACLOFEN 10 MG TAB PO SCH (15:30)
--- NOTE | 2019-01-30 16:53 | Progress Note ---
DATE: Internal Medicine Progress Note SUBJECTIVE: The patient is doing well now. He has significant improvement in the creatinine. The patient is not on dialysis anymore. He is going to move up stairs to the medical floor. PHYSICAL EXAMINATION: HEART: Showed regular rhythm. Normal S1 and S2 sound. LUNGS: Clear bilaterally. ABDOMEN: Soft. EXTREMITIES: Show no edema. VITAL SIGNS: Blood pressure 113/80, temperature 98.1, heart rate 88 per minute, respiratory rate 12 per minute, and oxygen saturation 100%. LABORATORY DATA: On the BMP; sodium 142, potassium 4.5, chloride 111, CO2 of 22, BUN 43, creatinine 3.46, and glucose 83. On the CBC, white blood count 7.50, hemoglobin 9.7, hematocrit 30.8, and platelet count 171,000. PT 13.5, INR 0.98, and PTT 21.0. AST 9, ALT 9, total bilirubin 0.6, and alkaline phosphatase 62. FINAL IMPRESSION: 1. Acute renal insufficiency over chronic renal insufficiency, stage 3 to 4. 2. Acute systolic congestive heart failure. 3. Hypertension with chronic renal insufficiency. 4. Hypotension. 5. Coronary artery disease. 6. Hyponatremia. PLAN OF TREATMENT: The patient is on dialysis. BUN and creatinine have improved significantly. The patient is going to move upstairs. We are going to continue the IV fluids. Continue with prednisone 30 mg daily, baclofen 10 mg at bedtime, tramadol every 4 hours as needed, gabapentin 400 mg daily, albumin as needed, Protonix 40 mg daily, and cefepime 1 g IV twice a day and we are awaiting for blood and urine culture report in the meantime. Case discussed with the nurse. The laboratory reports have been reviewed. Consultation reports have been reviewed also. The patient has significant improvement in the BUN and creatinine. So far he is on dialysis, we are going to move him today out of the ICU to the telemetry unit. Tentative discharge is tomorrow. MD WANDA Davis/SALVATORE /[id number]
[2019-01-30] MEDS: TRAMADOL HCL 50 MG TAB PO PRN (17:37)
[2019-01-30] MEDS: HYDROCODONE/APAP 10MG-325MG TAB PO PRN (22:00)
[2019-01-31] VITALS (7 sets, daily range): BP systolic 113–131; BP diastolic 71–90
[2019-01-31] MEDS: CEFEPIME 1GM/NS 0.9% 50 ML 50 ML IV SCH ×2 (01:45→13:07)
[2019-01-31] MEDS: HYDROCODONE/APAP 10MG-325MG TAB PO PRN ×2 (01:47→08:23)
[2019-01-31] MEDS: SODIUM CHLORIDE 0.9% 1000ML 1,000 ML IV SCH ×2 (02:05→13:00)
[2019-01-31 05:58] LABS: ANION GAP 12.3 mmol/L (8-16); BLOOD UREA NITROGEN 25 mg/dL (7-26); BUN/CREATININE RATIO 17 (6-25); CALCIUM 8.5 mg/dL (8.4-10.2); CARBON DIOXIDE 23 mmol/L (22-29); CHLORIDE 110 mmol/L (98-107); CREATININE, SERUM 1.43 mg/dL (0.72-1.25); EST GLOMERULAR FILTRATION RATE > 60 ML/MIN (60-); GLUCOSE 96 mg/dL (74-118); POTASSIUM 4.3 mmol/L (3.5-5.1); SODIUM 141 mmol/L (136-145)
[2019-01-31] MEDS: PREDNISONE 10 MG TAB PO SCH (08:09)
[2019-01-31] MEDS: GABAPENTIN 400 MG CAP PO SCH (08:09)
[2019-01-31] MEDS: PANTOPRAZOLE SOD 40 MG TABEC PO SCH (08:09)
[2019-01-31] MEDS: BACLOFEN 10 MG TAB PO SCH (15:35)
--- NOTE | 2019-01-31 16:15 | NUR ---
report received for patient transfer. patient to arrive via wheelchair, alert and oriented.
--- NOTE | 2019-01-31 16:28 | NUR ---
patient arrived to unit via wheelchair, alert and oriented. patient ambulated from wheelchair to bed with no issues. Evans catheter in place, draining clear, yellow urine. Family at bedside. call morrell within reach and bed in lowest position.
--- NOTE | 2019-01-31 19:25 | NUR ---
PT IS RESTING IN BED. RESPIRATION IS EVEN AND UNLABORED, NO DISTRESS NOTED. BED IN THE LOWEST POSITION, LOCKED, AND CALL LIGHT WITHIN REACH. WILL CONTINUE TO MONITOR.
[2019-02-01] MEDS ORDERED: SODIUM CHLORIDE 0.9% 250ML 250 ML ONE (00:21)
[2019-02-01] MEDS: CEFEPIME 1GM/NS 0.9% 50 ML 50 ML IV SCH (00:28)
[2019-02-01] MEDS: HYDROCODONE/APAP 10MG-325MG TAB PO PRN (00:28)
[2019-02-01 01:05] VITALS: BP 129/73
[2019-02-01 06:25] VITALS: BP 140/84
[2019-02-01 06:43] LABS: ANION GAP 12.9 mmol/L (8-16); BLOOD UREA NITROGEN 17 mg/dL (7-26); BUN/CREATININE RATIO 15 (6-25); CALCIUM 8.8 mg/dL (8.4-10.2); CARBON DIOXIDE 22 mmol/L (22-29); CHLORIDE 110 mmol/L (98-107); CREATININE, SERUM 1.14 mg/dL (0.72-1.25); EST GLOMERULAR FILTRATION RATE > 60 ML/MIN (60-); GLUCOSE 88 mg/dL (74-118); POTASSIUM 3.9 mmol/L (3.5-5.1); SODIUM 141 mmol/L (136-145)
[2019-02-01] MEDS: TRAMADOL HCL 50 MG TAB PO PRN (07:07)
[2019-02-01 08:05] VITALS: BP 144/81
[2019-02-01] MEDS: GABAPENTIN 400 MG CAP PO SCH (08:40)
[2019-02-01] MEDS: PANTOPRAZOLE SOD 40 MG TABEC PO SCH (08:40)
[2019-02-01] MEDS: PREDNISONE 10 MG TAB PO SCH (08:40)
[2019-02-01 08:47] VITALS: BP 144/81
--- NOTE | 2019-02-01 09:25 | NUR ---
16F oro catheter discontinued as ordered. No acute distress noted. Patient due to void
[2019-02-01] MEDS ORDERED: ONDANSETRON HCL 4 MG ORAL DISINTEGRATING TAB PO PRN (09:30)
[2019-02-01] MEDS ORDERED: NEURONTIN400 MG PO (10:41)
[2019-02-01] MEDS ORDERED: ULTRAM50 MG PO (10:41)
--- NOTE | 2019-02-01 11:00 | NUR ---
Patient voided 150ml without discomfort. Bladder scan done 57cc noted.
--- NOTE | 2019-02-01 11:22 | NUR ---
Right CVC discontinued as ordered without discomfort. No abnormal drainage noted. dry dressing and tape placed.
--- NOTE | 2019-02-01 12:06 | NUR ---
Taken via wheelchair by PCT to personal car. AAOX4 to time, person, place, situation. Respirations even and unlabored. Dressing to lateral neck clean, dry, and intact (s/p IJ removal). Discharge instructions, rx, and all personal belongings taken with patient.
--- NOTE | 2019-02-01 12:17 | Discharge Summary ---
HOSPITAL COURSE: A 63-year-old male with past medical history positive for hypertension, Crohn disease, came here with nausea and vomiting, renal insufficiency, placed on dialysis, IV fluids, BUN and creatinine is improved significantly from the GFR stage V to stage II. The patient is doing much better. He is going home tomorrow. PHYSICAL EXAMINATION: HEART: Showed regular rhythm. Normal S1, S2 sound. LUNGS: Clear bilaterally. ABDOMEN: Soft. LABORATORY DATA: On the BMP; sodium 141, potassium 4.3, chloride 110, CO2 23, BUN 25, creatinine 1.43, glucose 96. On the CBC; white blood count 7.50, hemoglobin 9.7, hematocrit 30.8, platelet count 171,000. PT 13.5, INR 0.98, PTT 21.0. AST 9, ALT 9, total bilirubin 0.6, alkaline phosphatase 62. FINAL IMPRESSION: 1. Acute on chronic renal insufficiency. 2. Crohn's disease. 3. Hypertension. 4. Coronary artery disease. 5. Anemia. PLAN OF TREATMENT: The patient will continue with prednisone as per the prior indication 30 mg daily. We are going to taper down the prednisone. Continue baclofen 10 mg at bedtime, tramadol 50 mg q.4 hours as needed, gabapentin 400 mg daily, Protonix 40 mg daily. The patient is to avoid any exposures to mold. Apparently, he has been exposed to mold and then he developed vomiting with diarrhea, dehydrated. Again, the patient should avoid mold all the time. Following in two weeks. MD WANDA Davis/SALVATORE /[id number]
--- NOTE | 2019-02-02 08:28 | Discharge Summary ---
HOSPITAL COURSE: A 63-year-old male with past medical history positive for Crohn disease, hypertension, and polyneuropathy. The patient came to the hospital because of dehydration and vomiting and diarrhea. He was found to be in acute renal failure. IV fluids were given. Dialysis was done. The BUN and creatinine came back to normal. Dialysis was discontinued. The patient is going home today. PHYSICAL EXAMINATION: VITAL SIGNS: Blood pressure 144/81, temperature 97.8, heart rate 69 per minute, respiratory rate 20 per minute, and oxygen saturation 99%. HEART: Showed regular rhythm. Normal S1, S2 sound. LUNGS: Clear bilaterally. ABDOMEN: Soft. LABORATORY DATA: On the BMP; sodium 141, potassium 3.9, chloride 110, CO2 22, BUN 17, creatinine 1.14, and glucose 88. On the CBC; white blood count 7.50, hemoglobin 9.7, hematocrit 30.8, platelet count 171,000. PT 13.5, PTT 21.0, INR 0.98. AST 9, ALT 9, total bilirubin 0.6, and alkaline phosphatase 62. FINAL IMPRESSION: 1. Acute renal failure. 2. Crohn's disease. 3. Polyneuropathy. 4. Gastroesophageal reflux disease. PLAN OF TREATMENT: He is going to be discharged with the medication I already dictated yesterday on prior discharge summary. The patient is going to follow up with me in a week. He has to stay hydrated. MD WANDA Davis/SALVATORE /[id number]
== END 2019-02-01 12:06 | disposition home or self-care (01) | DRG 682 ==
LOC: ER 10:52 → ERHOLD 13:27 → ICU 18:00 → MED/SURG 01-31 16:28
PROVIDERS: ADMIT Internal Medicine; ATTEND Internal Medicine
PROC: 5A1D70Z Performance of Urinary Filtration, Intermittent, Less than 6 Hours Per Day (ICD-10-PCS; principal; 2019-01-29)
DX: I12.9 Hypertensive chronic kidney disease with stage 1 through stage 4 chronic kidney disease, or unspecified chronic kidney disease (principal); I50.21 Acute systolic (congestive) heart failure; N17.0 Acute kidney failure with tubular necrosis; N18.4 Chronic kidney disease, stage 4 (severe); E87.1 Hypo-osmolality and hyponatremia; E87.2 Acidosis; I95.9 Hypotension, unspecified; I25.10 Atherosclerotic heart disease of native coronary artery without angina pectoris; G62.9 Polyneuropathy, unspecified; K21.9 Gastro-esophageal reflux disease without esophagitis; E86.0 Dehydration; D63.8 Anemia in other chronic diseases classified elsewhere
CPT/HCPCS: 36415; 36556; 51700; 71045; 74176; 74470; 76937; 80048; 80053; 80061; 80307; 81001; 82550; 82553; 82570; 83605; 83735; 83880; 83993; 84156; 84300; 84484; 85025; 85610; 85730; 86140; 86704; 86705; 86706; 87040; 87086; 87340; 90962; 93005; 93306; 99284; J0692; J1644; J2405; J3370; J7030; J7050; J7512

== ENCOUNTER 2022-06-14 09:39 | Emergency (ER) | payer MEDICARE, OTHER ==
[~2022-06-14] VITALS: Ht 172.7 cm; Wt 104.8 kg
[~2022-06-14 09:39] MED LIST changes: +NEURONTIN400 MG PO; +ULTRAM50 MG PO
[2022-06-14] MEDS ORDERED: SODIUM CHLORIDE FLUSH 10 ML SYR IV PRN (10:00)
[2022-06-14] MEDS ORDERED: KETOROLAC TROMETHAMINE 30 MG/ML VIAL IV STA (10:11)
[2022-06-14 10:37] LABS: ALBUMIN 3.5 g/dL (3.5-5.0); ALBUMIN/GLOBULIN RATIO 0.8 (0.8-2.0); ANION GAP 15.8 mmol/L (8-16); CALCIUM 9.1 mg/dL (8.4-10.2); CREATININE, SERUM 1.13 mg/dL (0.72-1.25); POTASSIUM 3.8 mmol/L (3.5-5.1)
[2022-06-14 10:39] LABS: BASOPHILS % 0.3 % (0.0-1.0); EOSINOPHILS # (AUTO) 0.1 (0.0-0.4); HEMATOCRIT 39.4 % (38.2-49.6); HEMOGLOBIN 11.7 g/dL (14.0-18.0); LYMPHOCYTES # (AUTO) 2.1 (1.0-3.2); LYMPHOCYTES % 22.5 % (18.0-39.1); MEAN CORPUSCULAR HEMOGLOBIN 27.7 pg (28-32); MEAN CORPUSCULAR HGB CONC 29.7 g/dL (31-35); MEAN CORPUSCULAR VOLUME 93.1 fL (81-99); MONOCYTES # (AUTO) 0.6 (0.2-0.8); MONOCYTES % 6.4 % (4.4-11.3); NEUTROPHILS # (AUTO) 6.3 (2.1-6.9); NEUTROPHILS % 69.4 % (38.7-80.0); RED BLOOD COUNT 4.23 x10e6/uL (4.3-5.7); RED CELL DISTRIBUTION WIDTH 13.8 % (11.7-14.4)
[2022-06-14 10:42] LABS: PLATELET COUNT 114 x10e3/uL (140-360)
[2022-06-14] MEDS ORDERED: SODIUM CHLORIDE 0.9% 1000ML 1,000 ML IV ONE (11:15)
[2022-06-14] MEDS ORDERED: SODIUM CHLORIDE 0.9% 1000ML 1,000 ML ONE (11:23)
[2022-06-14] MEDS ORDERED: IOPAMIDOL 370 MG/ML 100 ML INFUS..BTL INJ ONE (13:13)
[2022-06-14 18:55] VITALS: BP 163/99
== END 2022-06-14 12:25 | disposition home or self-care (01) ==
LOC: ER 09:43
DX: R07.89 Other chest pain (principal); M79.18 Myalgia, other site; I10 Essential (primary) hypertension; E78.5 Hyperlipidemia, unspecified; K21.9 Gastro-esophageal reflux disease without esophagitis; N28.9 Disorder of kidney and ureter, unspecified; R94.31 Abnormal electrocardiogram [ECG] [EKG]; Z87.19 Personal history of other diseases of the digestive system
CPT/HCPCS: 36415; 71045; 71275; 80053; 83880; 84484; 85025; 93005; 94760; 99284; J1885; J7030; Q9967